=== PATIENT | female | born 2000 | race Caucasian/White ===

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

== ENCOUNTER → 2021-01-15 11:31 | Outpatient (CLI) | payer SELFPAY ==
[2021-01-15 13:16] LABS: Adenovirus,PCR Not Detected (NotDetected); Bordetella Pertussis Not Detected (NotDetected); Chlamydophila Pneumoniae, PCR Not Detected (NotDetected); Coronavirus 19, PCR Not Detected (NotDetected); Coronavirus 229E Not Detected (NotDetected); Coronavirus NL63 Not Detected (NotDetected); Coronavirus OC43 Not Detected (NotDetected); Coronovirus HKU1,PCR Not Detected (NotDetected); Human Metapneumovirus Not Detected (NotDetected); Influenza A, PCR Not Detected (NotDetected); Influenza AH1, 2009 Not Detected (NotDetected); Influenza AH1, PCR Not Detected (NotDetected); Influenza AH3,PCR Not Detected (NotDetected); Influenza B, PCR Not Detected (NotDetected); Mycoplasma Pneumoniae, PCR Not Detected (NotDetected); Parainfluenza 1, PCR Not Detected (NotDetected); Parainfluenza 2, PCR Not Detected (NotDetected); Parainfluenza 3, PCR Not Detected (NotDetected); Parainfluenza 4, PCR Not Detected (NotDetected); Respiratory Syncytial Virus Not Detected (NotDetected); Rhinovirus/Enterovirus Not Detected (NotDetected)
== END ==
PROVIDERS: PCP Nurse Practitioner Family; Visit Provider Nurse Practitioner
DX: Z20.822 Contact with and (suspected) exposure to COVID-19 (principal)
CPT/HCPCS: 87581; 87633; 87798

== ENCOUNTER → 2021-05-30 14:15 | Outpatient (CLI) | payer OTHER, SELFPAY | PROVIDERS: Visit Provider Nurse Practitioner Family | DX: Z20.822 Contact with and (suspected) exposure to COVID-19 (principal) | CPT/HCPCS: C9803; U0003; U0005 ==

== ENCOUNTER → 2021-11-07 16:24 | Outpatient (CLI) | payer BC, SELFPAY ==
[2021-11-07 17:45] LABS: HCG,Quantitative 1529 mIU/ml (0-5.42)
== END ==
PROVIDERS: PCP Emergency Medicine; Visit Provider Emergency Medicine
DX: Z34.90 Encounter for supervision of normal pregnancy, unspecified, unspecified trimester (principal)
CPT/HCPCS: 36415; 84702

== ENCOUNTER → 2021-11-30 12:54 | Outpatient (CLI) | payer BC, SELFPAY ==
--- NOTE | 2021-11-30 12:57 | US_ITS ---
FINAL REPORT CLINICAL HISTORY: for dates FINDINGS: Transvaginal sonographic images of the pelvis were obtained. There is a single living intrauterine . [place]-rump length measures 13.76 mm corresponding to 7 week 5 day gestation. Heart rate is 170 beats per minute. The ovaries are within normal limits. There is a probable corpus luteum cyst on the right. IMPRESSION: Single living IUP with an ultrasound age of 7 weeks 5 days days. Reviewed, Interpreted and Dictated by Ham Luo III, MD Transcribed by Gabriela Velásquez Authenticated and [facility]
== END ==
PROVIDERS: PCP Emergency Medicine; Visit Provider Nurse Practitioner Obstetrics & Gynecology
DX: Z34.90 Encounter for supervision of normal pregnancy, unspecified, unspecified trimester (principal)
CPT/HCPCS: 76801

== ENCOUNTER → 2021-12-14 12:00 | Outpatient (CLI) | payer BC, SELFPAY ==
[2021-12-14 12:37] LABS: Basophils % 0.5 % (0.1-2.0); Eosinophils % 0.5 % (0.1-12.0); Hemoglobin 14.1 g/dL (12.2-16.2); Lymphocytes # 1.3 K/mm3 (0.7-4.5); Lymphocytes % 17.2 % (10-50); Mean Corpuscular HGB Conc 33.6 g/dL (31.8-35.4); Mean Corpuscular Volume 89.1 fl (81-99); Mean Platelet Volume 7.5 fl (7.4-10.4); Monocytes # 0.3 K/mm3 (0.1-1.0); Monocytes % 4.3 % (1.7-9.3); Neutrophils % 77.4 % (37.0-80.0); Platelet Count 322 K/mm3 (142-424); Red Blood Count 4.71 M/mm3 (4.20-5.40); Red Cell Distribution Width 12.4 % (11.5-17.5); White Blood Count 7.8 K/mm3 (4.8-10.8)
[2021-12-14 12:54] LABS: Anion Gap 13.7 mEq/L (5-15); Blood Urea Nitrogen 9 mg/dl (7-17); Calcium 9.1 mg/dl (8.4-10.2); Carbon Dioxide 22 mmol/L (22.0-30.0); Chloride 106 mmol/L (98-107); Estimated Glomerular Filt Rate 153 ml/min (>60); GFR (African American) 185 ML/MIN (>60); Glucose 104 mg/dl (74-100); Potassium 3.7 mmoL/L (3.5-5.1); Sodium 138 mmol/L (136-145)
== END ==
PROVIDERS: PCP Emergency Medicine; Visit Provider Nurse Practitioner Obstetrics & Gynecology
DX: O02.1 Missed abortion (principal); N92.0 Excessive and frequent menstruation with regular cycle; Z01.812 Encounter for preprocedural laboratory examination; Z20.822 Contact with and (suspected) exposure to COVID-19
CPT/HCPCS: 36415; 80048; 85025; C9803; U0003; U0005

== ENCOUNTER 2021-12-16 07:47 | Day surgery (SDC) | payer BC, SELFPAY ==
[2021-12-15 13:48] VITALS: BMI 22.3
[2021-12-16] VITALS (10 sets, daily range): BP systolic 112–132; BP diastolic 67–76; PULSE 62–84; RESP 16–18; TEMP 36.2–43; O2SAT 99–100
--- NOTE | 2021-12-16 09:23 | HMH.ANESCL ---
[facility] Anesthesia Checklist - Patient Identification Patient Identification: Arm Band - Structural Data Admitted From: Home Planned Operative Procedure/s: D&C with Berkely Suction Consent for Planned Operative Procedure(s) Verified: Yes Verified Documents: Surgical Consent, History and Physical - NPO Status Verified Time NPO: 00:00 - Additional verifications Anesthesia Reactions: No Hx Blood Transfusions: No Blood Transfusion Reaction: No - Airway Assessment C-Spine Mobility Assessed: Yes (mp2) TMJ Mobility Assessed: Yes Dentition: Good Dentition - Neurological Assessment Level of Consciousness: Awake, Alert - Anesthesia Plan Anesthesia Risk discussed: Yes Anesthesia Plan: Verified ASA Class: I Anesthesia Type: General [facility] History I have reviewed the patient's past medical history: Yes Medical History: Reports:: Renal Disease Denies:: Cancer, Diabetes Mellitus Type 1, Diabetes Mellitus Type 2, Internal Pacemaker, MRSA, Seizures *Have you ever received a pneumonia vaccine?: No *Have you received a flu vaccine this season?: No Other Medical History: Denies: Blood Transfusion Reaction Anesthesia experience/problems:: nac Other Surgeries: Yes: Other. No: , Pacemaker Amputation: No Fractures: No - *Social History Last grade of school completed: High school graduate Smoking Status: Never smoker Alcohol Intake: never Substance Use Type: denies use *Occupational Status:: employed Housing: house *Travel in the last 8 weeks: None Family Hx:: No significant family history SORTING GRAPPLE OPERATOR history: no No SORTING GRAPPLE OPERATOR history, no Non-contributory, no Spontaneous , no Therapeutic , no Cervical Cancer, no Abnormal Uterine Bleeding, no Ovarian Cancer, no dysfunctional uterine bleed, no Endometriosis, no Ectopic , no Polycystic Ovary Syndrome, no Uterine Fibroids, no Tubal Ligation, no , no Failure to Progress, no Additional SORTING GRAPPLE OPERATOR History
--- NOTE | 2021-12-16 09:39 | HMH.ANESI ---
[facility] Anesthesia Record Part I Intake, IV Amount: 500 Estimated blood loss (mL): 150 Urine output (mL): 0 Blood Pressure: 117/76 SaO2: 99 Pulse Rate: 62 Respiratory Rate: 16 Temperature: 97.9 F Patient is:: Drowsy, Stable Stable to PACU at:: 09:35
--- NOTE | 2021-12-16 09:47 | P.OP_ITS ---
Date of procedure: 12/16/21 Pre-op Diagnosis:: Missed Post-op Diagnosis:: Missed Procedure performed:: Dilation and curettage with Brandon suction Surgeon:: Amadeo Alcala MD MONTESSORI PARAPROFESSIONAL:: Jin Magallon Anesthesia: LMA Estimated blood loss (mL): 150 Clinical Note:: She is a 21-year-old 2 para 1 who was 10 weeks gestational age. She was seen in my office and I could not find a heart. I did an ultrasound and it showed no heart rate activity and no flow to the fetus. The fetus measures 7 weeks. We repeated the ultrasound the next day and found the same thing. After having discussed the risk and benefits we elected to perform a dilation and curettage with Tensas suction. The risks and benefits of surgery discussed the patient prior to surgery. Operative findings:: She had an anteverted bulky uterus. Operative note:: She was taken the operating room where LMA anesthesia was found be adequate. She is prepped draped normal sterile fashion in the lithotomy position. A weighted speculum was placed in the vagina and the anterior lip of the cervix was grasped with a tenaculum. Gonzalez dilators used to dilate the cervix to 9 mm. Then using a 9 mm curved Brandon suction curette I evacuated the uterine contents. This was followed by gentle curettage. She tolerated the procedure well and was taken to the recovery room in excellent condition. All sponge, instrument counts were correct. Estimated blood loss was approximately 150 cc. Condition: stable Disposition: PACU Specimens:: Products of conception Complications:: None
--- NOTE | 2021-12-16 10:26 | PC.NURSE ---
1003-detailed report called to ANDRA Rosales 1005-pt transported to post op via stretcher w/scarlett rails up and left in care of ANDRA Rosales with bed locked in lowest position, vss, pt stable
--- NOTE | 2021-12-16 10:48 | P.PN_ITS ---
[facility] Anesthesia Record Part II Discharge Time: 10:05 Destination: Surgical Day Care (OP Surgery) PACU nurse assessment reviewed?: Yes Patient Condition:: Good Anesthesia Complications:: None Swallowing reflex intact?: Yes Cyanosis?: No Blood Pressure: 120/72 Pulse Rate: 66 Temperature: 97.4 F Mental Status: Alert & Oriented Pain level:: 0 Nausea and/or vomitting:: None Intake, IV Amount: 0
== END 2021-12-16 10:35 | disposition home or self-care (01) ==
LOC: OR 07:48
PROVIDERS: PCP Emergency Medicine; Visit Provider Nurse Practitioner Obstetrics & Gynecology
PROC: (CPT 59820; principal; 2021-12-16 09:15)
DX: O02.1 Missed abortion (principal); Z3A.10 10 weeks gestation of pregnancy
CPT/HCPCS: 59820; J2405

== ENCOUNTER → 2022-12-28 13:35 | Outpatient (CLI) | payer BC, SELFPAY ==
[2022-12-28 14:59] LABS: HCG,Quantitative 3634 mIU/ml (0-5.42)
[2022-12-30 10:19] LABS: Progesterone 5.9 ng/mL (.)
== END ==
LOC: LAB 13:35
PROVIDERS: PCP Nurse Practitioner Family; Visit Provider Nurse Practitioner Obstetrics & Gynecology
DX: N92.6 Irregular menstruation, unspecified (principal); Z32.00 Encounter for pregnancy test, result unknown
CPT/HCPCS: 36415; 84144; 84702

== ENCOUNTER → 2023-01-04 08:20 | Outpatient (CLI) | payer BC, SELFPAY ==
[2023-01-04 11:07] LABS: HCG,Quantitative 16561 mIU/ml (0-5.42)
[2023-01-05 08:34] LABS: Progesterone 28.3 ng/mL (.)
== END ==
LOC: LAB 08:21
PROVIDERS: PCP Nurse Practitioner Family; Visit Provider Nurse Practitioner Family
DX: Z32.00 Encounter for pregnancy test, result unknown (principal)
CPT/HCPCS: 36415; 84144; 84702

== ENCOUNTER → 2023-01-17 15:33 | Outpatient (CLI) | payer BC, SELFPAY ==
--- NOTE | 2023-01-17 15:34 | US_ITS ---
PROCEDURE: US OB <= 14 WEEKS FETUS CLINICAL INDICATION: for dates COMPARISON: No exams were available for comparison FINDINGS: Transvaginal sonographic images of the pelvis were obtained. From her last menstrual period she is 8weeks 0 days.. An intrauterine gestational sac is present with a pole with a crown-rump length of 1.47cm correlating to gestational age of 7weeks 6days. heart tones are present with an FHR of 169bpm. Yolk sac is noted. The yolk sac measures 5.3mm. The right ovary is seen and appears normal. It measures 2.8 cm x 1.4 cm x 1.7 cm The left ovary is seen and appears normal. It measures 2.4 cm x 1.7 cm x 2.1 cm. Corpus luteum seen on the left ovary. There is no fluid in the cul-de-sac. IMPRESSION: 1. Viable fetus within the uterine cavity. 2. Fetus measures 7 weeks 6 days which corresponds with her last period. 3. Ovaries are seen and appear normal. 4. No fluid in the cul-de-sac. Dictated by: Amadeo Alcala MD 01/17/2023 17:21 Amadeo Alcala MD in [facility] 01/17/2023 17:21
== END ==
PROVIDERS: PCP Nurse Practitioner Family; Visit Provider Nurse Practitioner Obstetrics & Gynecology
DX: Z34.91 Encounter for supervision of normal pregnancy, unspecified, first trimester (principal); Z3A.01 Less than 8 weeks gestation of pregnancy
CPT/HCPCS: 76801

== ENCOUNTER → 2023-01-24 23:29 | Outpatient (CLI) | payer BC, SELFPAY | PROVIDERS: PCP Nurse Practitioner Family; Visit Provider Nurse Practitioner Obstetrics & Gynecology | DX: Z34.91 Encounter for supervision of normal pregnancy, unspecified, first trimester (principal); Z3A.08 8 weeks gestation of pregnancy | CPT/HCPCS: 87086 ==

== ENCOUNTER → 2023-02-23 08:07 | Outpatient (CLI) | payer BC, SELFPAY ==
[2023-02-23 08:50] LABS: Basophils # 0.1 K/mm3 (0-0.2); Basophils % 0.5 % (0.1-2.0); Eosinophils # 0.1 K/mm3 (0.0-0.4); Eosinophils % 0.8 % (0.1-12.0); Hematocrit 40.6 % (37.0-47.0); Hemoglobin 13.6 g/dL (12.2-16.2); Lymphocytes # 1.6 K/mm3 (0.7-4.5); Lymphocytes % 18.6 % (10-50); Mean Corpuscular HGB Conc 33.5 g/dL (31.8-35.4); Mean Corpuscular Hemoglobin 30.2 pg (27.0-31.2); Mean Platelet Volume 8.3 fl (7.4-10.4); Monocytes # 0.3 K/mm3 (0.1-1.0); Monocytes % 3.8 % (1.7-9.3); Neutrophils # 6.4 K/mm3 (1.8-7.8); Neutrophils % 76.3 % (37.0-80.0); Platelet Count 286 K/mm3 (142-424); Red Blood Count 4.51 M/mm3 (4.20-5.40); Red Cell Distribution Width 12.9 % (11.5-17.5); White Blood Count 8.3 K/mm3 (4.8-10.8)
[2023-02-24 07:15] LABS: Rubella Antibodies, IgG 1.61 index (Immune >0.99)
[2023-02-24 11:01] LABS: Rapid Plasma Reagin Ab Titer Non Reactive titer (NonRea<1:1)
[2023-03-04 11:27] LABS: HIV Screen 4th Generation wRfx Non Reactive; Hepatitis B Surface Antigen Negative; Hepatitis C Antibody Non Reactive
== END ==
PROVIDERS: PCP Nurse Practitioner Family; Visit Provider Nurse Practitioner Obstetrics & Gynecology
DX: Z34.91 Encounter for supervision of normal pregnancy, unspecified, first trimester (principal); Z3A.13 13 weeks gestation of pregnancy
CPT/HCPCS: 36415; 85025; 86593; 86703; 86762; 86850; 87340; 87380; G0432

== ENCOUNTER → 2023-04-18 12:57 | Outpatient (CLI) | payer BC, SELFPAY ==
--- NOTE | 2023-04-18 12:57 | US_ITS ---
PROCEDURE: US OB /MATERNAL DETAIL CLINICAL INDICATION: 20 week anatomy scan COMPARISON: No exams were available for comparison FINDINGS: Transabdominal sonographic images of the pelvis were obtained. From her established due date she is 20 weeks 6 days. Single viable intrauterine gestation. Breech position. Placenta: Posteriorplacenta grade 1. There is an average amount of fluid. MVP 2.8 cm. The cervix appears satisfactory. Closed and measuring 3.7 cm in length. Complete survey performed and was unremarkable on the submitted images as in PACS. No discrete anomalies identified on survey imaging by technologist. Active fetus. Three-vessel cord with satisfactory umbilical cord insertion. 4- chamber heart noted. Situs, aortic arch, LVOT, RVOT, three-vessel view appear normal. Survey of brain & ventricles Unremarkable. Cerebellum, thalamus, choroid plexus, cisterna magna appear normal. Face and neck survey unremarkable. Profile, nasion, lips and nose appeared normal. Diaphragm and chest views unremarkable. Abdomen: Both kidneys noted and unremarkable. Stomach and bladder noted and satisfactory. Spine: Survey of the spine satisfactory with no anomalies identified nor imaged. Cervical, thoracic, lower spine appear normal. Both arms and legs noted. Amniotic Fluid: Adequate. Measurements: Average ultrasound age 20weeks 3days. Estimated due date by ultrasound age 0409/02/2023. Estimated weight 356g BPD = 20weeks HC = 20weeks 5days AC = 20weeks 4days FL = 20weeks 3days Growth Percentile= 25 Heart Rate = 153bpm Cerebellum = 20weeks 2days Humerus = 20weeks 5days HC/AC is 1.19 FL/BPD is 0.72 FL/AC is 0.22 IMPRESSION: 1. Viable fetus in the breech presentation with a posterior placenta grade 1. 2. The fluid is within normal limits with an MVP of 2.8 cm. 3. Anatomical scan appears normal. 4. biometry is consistent with the dates. Dictated by: Amadeo Alcala MD 04/20/2023 10:48 Amadeo Alcala MD in [facility] 04/20/2023 10:48
== END ==
PROVIDERS: PCP Nurse Practitioner Family; Visit Provider Nurse Practitioner Obstetrics & Gynecology
DX: Z34.92 Encounter for supervision of normal pregnancy, unspecified, second trimester (principal); Z3A.20 20 weeks gestation of pregnancy
CPT/HCPCS: 76811

== ENCOUNTER 2023-05-30 08:09 | Outpatient (CLI) | payer BC, SELFPAY ==
[2023-05-30 08:42] LABS: Glucose,Fasting 88 mg/dl (74-100)
[2023-05-30 08:43] LABS: Basophils # 0.1 K/mm3 (0-0.2); Basophils % 0.7 % (0.1-2.0); Eosinophils # 0.1 K/mm3 (0.0-0.4); Eosinophils % 0.8 % (0.1-12.0); Hematocrit 40.5 % (37.0-47.0); Hemoglobin 13.8 g/dL (12.2-16.2); Lymphocytes # 1.6 K/mm3 (0.7-4.5); Lymphocytes % 16.2 % (10-50); Mean Corpuscular Hemoglobin 31.3 pg (27.0-31.2); Mean Corpuscular Volume 92.2 fl (81-99); Mean Platelet Volume 8.3 fl (7.4-10.4); Monocytes # 0.4 K/mm3 (0.1-1.0); Monocytes % 4.3 % (1.7-9.3); Neutrophils # 7.6 K/mm3 (1.8-7.8); Neutrophils % 78.1 % (37.0-80.0); Platelet Count 256 K/mm3 (142-424); Red Cell Distribution Width 13.2 % (11.5-17.5); White Blood Count 9.8 K/mm3 (4.8-10.8)
[2023-05-30 10:05] LABS: Glucose 1 Hour 127 mg/dL (74-100)
== END 2023-05-30 23:59 ==
LOC: LAB 08:10
PROVIDERS: PCP Nurse Practitioner Family; Visit Provider Obstetrics & Gynecology
DX: Z34.92 Encounter for supervision of normal pregnancy, unspecified, second trimester (principal); Z3A.26 26 weeks gestation of pregnancy
CPT/HCPCS: 36415; 82951; 85025

== ENCOUNTER 2023-08-02 14:00 | Outpatient (CLI) | payer BC, SELFPAY ==
--- NOTE | 2023-08-02 14:01 | US_ITS ---
PROCEDURE: US OB BIOPHYSICAL PROFILE CLINICAL INDICATION: US OB BPP/Growth with SD Ratio-SGA COMPARISON: US US OB /MATERNAL DETAIL from 04/18/2023 FINDINGS: Transabdominal sonographic images of the uterus were obtained. From her established due date she is 36weeks 0 days. The following parameters are obtained: Viable Fetus in the cephalic presentation with a posterior placenta grade 2. Average ultrasound age is 36weeks 1day Estimated weight 2,689g, 5 lb 15 oz. Cervix measures 4.2 cm. Measurements: heart Rate = 147bpm BPD = 36weeks 1day, 61 percentile HC = 38weeks 0 days, 68 percentile AC = 35weeks 1day, 33 percentile FL = 35weeks 1day, 22 percentile HC/AC is 1.07 FL/BPD is 0.77 FL/AC is 0.22 37 percentile Amniotic fluid index: 9.47cm, MVP 4.14 cm. Qualitative AFV:2 Breathing movements: 2 Gross Body Movements: 2 Tone: 2 Biophysical profile score: 8 Doppler evaluation of the umbilical artery: SD ratio: 2.2-2.6 Resistive index: 0.62 No obvious anomalies evident.Kidneys, stomach, bladder, three-vessel cord appear normal. There is renal pyelectasis of the right kidney measuring 10.3 mm. IMPRESSION: 1. Viable fetus in the cephalic presentation with a posterior placenta grade 2. 2. The fluid is within normal limits with an amniotic fluid index of 9.47 cm, MVP 4.14 cm. 3. Biophysical profile is 8/8 with good breathing movement and movement seen. 4. SD ratio normal between 2.2-2.6. 5. There has been good interval growth with the fetus currently 37th percentile. 6. There has been increased right renal pelvis dilation, now measuring 10.3 cm. Suggest follow-up with office manager executive assistant. Dictated by: Amadeo Alcala MD 08/03/2023 11:11 Amadeo Alcala MD in [place] 08/03/2023 11:11
== END 2023-08-02 23:59 ==
LOC: RAD 14:01
PROVIDERS: PCP Nurse Practitioner Family; Visit Provider Nurse Practitioner Obstetrics & Gynecology
DX: O09.293 Supervision of pregnancy with other poor reproductive or obstetric history, third trimester (principal); O36.5930 Maternal care for other known or suspected poor fetal growth, third trimester, not applicable or unspecified; Z3A.35 35 weeks gestation of pregnancy
CPT/HCPCS: 76816; 76819; 76820

== ENCOUNTER 2023-08-08 17:10 | Outpatient (CLI) | payer BC, SELFPAY | END 2023-08-08 23:59 | LOC: LAB.DROPOF 17:10 | PROVIDERS: PCP Obstetrics & Gynecology; Visit Provider Obstetrics & Gynecology | DX: O26.893 Other specified pregnancy related conditions, third trimester (principal); Z3A.36 36 weeks gestation of pregnancy | CPT/HCPCS: 86403 ==

== ENCOUNTER 2023-08-12 22:59 | Inpatient (IN) | payer BC, SELFPAY ==
[2023-08-12 22:24] VITALS: BMI 25.5
[2023-08-12 22:40] VITALS: BP 130/75; PULSE 86; RESP 18; TEMP 36.8; O2SAT 100; BMI 25.5
[2023-08-12 22:44] VITALS: BP 130/75; PULSE 86; RESP 18; TEMP 36.8; O2SAT 100
[2023-08-12 22:52] LABS: Fetal Membrane Rupture (Rapid) Positive (Negative)
[2023-08-12] MEDS: DEXTROSE 5%-LACTATED RINGERS 1,000 ML 125 ML IV (23:23)
[2023-08-12] MEDS: OXYTOCIN/RINGERS LACTATE 30 UNITS/500 ML BAG IV (23:23)
[2023-08-12] MEDS: LACTATED RINGERS 1000ML 1,000 ML 500 ML IV (23:23)
[2023-08-12 23:53] LABS: Microscopic, Urine URINE MICROSCOPIC (MICROSCOPIC)
[2023-08-12 23:54] LABS: Basophils # 0.1 K/mm3 (0-0.2); Basophils % 0.8 % (0.1-2.0); Eosinophils # 0.1 K/mm3 (0.0-0.4); Eosinophils % 0.7 % (0.1-12.0); Hematocrit 39.6 % (37.0-47.0); Hemoglobin 12.9 g/dL (12.2-16.2); Lymphocytes # 2.5 K/mm3 (0.7-4.5); Lymphocytes % 18.1 % (10-50); Mean Corpuscular HGB Conc 32.6 g/dL (31.8-35.4); Mean Corpuscular Hemoglobin 29.9 pg (27.0-31.2); Mean Platelet Volume 9.1 fl (7.4-10.4); Monocytes # 0.8 K/mm3 (0.1-1.0); Monocytes % 5.5 % (1.7-9.3); Neutrophils # 10.4 K/mm3 (1.8-7.8); Neutrophils % 74.9 % (37.0-80.0); Platelet Count 282 K/mm3 (142-424); Red Cell Distribution Width 13.6 % (11.5-17.5); White Blood Count 13.8 K/mm3 (4.8-10.8)
[2023-08-12 23:58] LABS: Appearance,Urine CLEAR (Clear); Bilirubin,Urine Negative (Negative); Blood, Urine Negative (Negative); Color,Urine YELLOW (Yellow); Glucose,Urine (UA) Negative (Negative); Ketones,Urine Negative (Negative); Leukocyte Esterase,Urine Negative (Negative); Nitrate,Urine Negative (Negative); Protein,Urine Negative (Negative); Urobilinogen,Urine 0.2 EU/dl (0.2)
[2023-08-13 00:04] LABS: Chloride 107 mmol/L (98-107); Potassium 3.7 mmoL/L (3.5-5.1); Sodium 133 mmol/L (136-145)
[2023-08-13 00:05] LABS: Alanine Aminotransferase 17 U/L (12-78); Albumin Level 3.5 g/dl (3.5-5.0); Albumin/Globulin Ratio 1.3 (1.1-1.8); Alkaline Phosphatase 217 U/L (38-126); Aspartate Amino Transferase 29 U/L (14-36); Bilirubin,Total 0.6 mg/dl (0.2-1.3); Blood Urea Nitrogen 6 mg/dl (7-17); Calcium 8.4 mg/dl (8.4-10.2); Carbon Dioxide 21 mmol/L (22.0-30.0); Creatinine Clearance Estimated 153 mL/min (50-200); Estimated Glomerular Filt Rate 122 ml/min (>60); GFR (African American) 147 ML/MIN (>60); Globulin 2.8 g/dL (1.3-3.2); Glucose 96 mg/dl (74-100); Total Protein,Serum 6.3 g/dl (6.3-8.2)
[2023-08-13 00:06] LABS: Anion Gap 8.7 mEq/L (5-15)
[2023-08-13 00:09] LABS: Bacteria,Urine Trace /lpf; WBC,Urine Occasional #/hpf (0-3)
[2023-08-13 00:11] LABS: Barbiturates Screen,Urine Negative ng/ml (<200)
[2023-08-13 00:12] LABS: Amphetamine/Metha Screen,Urine Negative ng/ml (<1000); Benzodiazepines Screen,Urine Negative ng/ml (<200)
[2023-08-13 00:13] LABS: Cannabinoid Screen,Urine Negative ng/ml (<50); Cocaine Screen,Urine Negative ng/ml (<300)
[2023-08-13 00:14] LABS: Methadone Screen,Urine Negative ng/ml (<300)
[2023-08-13 00:15] LABS: Opiate Screen,Urine Negative ng/ml (<300); Phencyclidine Screen,Urine Negative ng/ml (<25)
[2023-08-13] MEDS: BUTORPHANOL TARTRATE 2 MG/ML VIAL IV (02:52)
--- NOTE | 2023-08-13 06:27 | EXP.ANES.CKL ---
[facility] Disclaimer: The information contained in this section may have been updated after the patient was seen, as this information can be updated by other users. 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 caffeine: Yes [facility] Anesthesia Checklist Patient Identification Patient Identification: Verbal (Name & ) Structural Data Admitted From: Inpatient Planned Operative Procedure/s: labor epidural Consent for Planned Operative Procedure(s) Verified: Yes Additional verifications Anesthesia Reactions: No Hx Blood Transfusions: No Blood Transfusion Reaction: No Airway Assessment Mallampati Score:: Class I C-Spine Mobility Assessed: Yes TMJ Mobility Assessed: Yes Dentition: Good Dentition Neurological Assessment Level of Consciousness: Awake, Alert and Appropriate Anesthesia Plan Anesthesia Risk discussed: Yes Anesthesia Plan: Verified ASA Class: II Anesthesia Type: Epidural
--- NOTE | 2023-08-13 08:22 | P.HP_ITS ---
OB - H&P: HPI Antepartum History of Present Illness Chief complaint: Leakage of fluid History of present illness: Ms David Hannah is a 23 yo at 37w4d who presents to [facility] Labor and Delivery with leakage of fluid that started at 2130 last night, 08/12/23. She admits to contractions. No vaginal bleeding. Baby is very active. She has had good care. GBS pending. Upon arrival to L&D Amnisure was positive. Cervical exam . History of Present Criteria for establishing EDC:: based on 1st trimester US only care: good care Ultrasounds: normal mid trimester US Obstetrical complications: none Medical complications: none Labs Blood type: O (+) positive Rubella: immune RPR/VDRL: nonreactive GBS status: unknown HBsAG: negative [facility] Disclaimer: The information contained in this section may have been updated after the patient was seen, as this information can be updated by other users. 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 caffeine: Yes Review of Systems Review of Systems Review of systems:: pertinent systems reviewed and negative unless documented below Meds Home Medications and Allergies Home Medications Medication Instructions Recorded Confirmed Type vits no.126-ferrous fum 1 tab PO DAILY 01/24/23 08/08/23 History 28 mg iron-folic acid 800 mcg tablet (Classic ) ondansetron 4 mg disintegrating 4 mg PO Q6H PRN nausea and 02/22/23 08/08/23 Rx tablet vomiting #30 tabs New Prescriptions to Start Prescriptions: Allergies Allergy/AdvReac Type Severity Reaction Status Date / Time No Known Allergies Allergy Verified 08/08/23 13:18 OB - H&P: Exam Physical Exam Vital signs: Temp Pulse Resp BP Pulse Ox O2 Del Method 98.2 F 86 18 130/75 100 Room Air 08/12/23 22:44 08/12/23 22:44 08/12/23 22:44 08/12/23 22:44 08/12/23 22:44 08/12/23 22:44 Constitutional no acute distress and cooperative Routine HEENT Exam Head: Present normocephalic and atraumatic Eye: Absent conjunctivae pink ENT: Present mucous membranes moist Routine Neck Exam Present full ROM Routine Respiratory Exam Present CTA bilaterally and normal respiratory effort Routine Cardiovascular Exam Present RRR Routine Abdominal Exam Present soft (Gravid); Absent tenderness Routine Rectal Exam Patient deferred: visual exam Routine Exam External: Present normal urethra appearance; Absent erythema, tenderness, lesions or lacerations Routine Extremities Exam Present full ROM; Absent edema Routine Neurological Exam Present alert, moving all extremities and normal speech Routine Psychiatric Exam Present normal affect and cooperative Detailed Labor and Delivery Exam Dilation (cm): 5 Effacement (%): 80 Cervix position: mid station: -1 Consistency: soft Membranes: spontaneously ruptured (2130 on 08/12/23) Amniotic fluid: clear Baseline heart rate: 150 monitor accelerations: Present monitor decelerations: Variable FPC variability: Minimal (3-5) Contraction frequency (min): 4 Tachysystole: No OB - Results Labs Labs: Short CBC 08/12/23 Range/Units 23:20 WBC 13.8 H (4.8-10.8) K/mm3 Hgb 12.9 (12.2-16.2) g/dL Hct 39.6 (37.0-47.0) % Plt Count 282 (142-424) K/mm3 BMP 08/12/23 23:20 Sodium 133 L Potassium 3.7 Chloride 107 Carbon Dioxide 21 L BUN 6 L Creatinine 0.60 Glucose 96 Calcium 8.4 Liver Function 08/12/23 Range/Units 23:20 Total Bilirubin 0.6 (0.2-1.3) mg/dl AST 29 (14-36) U/L ALT 17 (12-78) U/L Alkaline Phosphatase 217 H (38-126) U/L Albumin 3.5 (3.5-5.0) g/dl Urine 08/12/23 Range/Units 23:10 Urine Color Yellow (Yellow) Urine Appearance Clear (Clear) Urine pH 7.0 (5.0-8.5) Ur Specific [place] 1.010 (1.005-1.030) Urine Protein Negative (Negative) Urine Glucose (UA) Negative (Negative) OB - A/P Antepartum (1) 37 weeks gestation of : Status: Acute (2) PROM (premature rupture of membranes): Status: Acute Additional Plan Planning to breastfeed?: Yes Additional Information:: Admit to L&D for labor augmentation with Pitocin GBS pending Close monitoring Anticipate vaginal delivery
--- NOTE | 2023-08-13 09:13 | HMH.PHAINT1 ---
Pharmacy Intervention Comments: MEDICATION RECONCILIATION COMPLETED ON PATIENT USING EXTERNAL FILL HISTORY FROM PHARMACY. -ELVER SANCHEZ, PEPED
[2023-08-13] MEDS: OXYTOCIN/RINGERS LACTATE 30 UNITS/500 ML BAG 999 UNITS IV (13:54)
--- NOTE | 2023-08-13 14:02 | EXP.DN ---
Delivery Note Delivery Date:: 08/13/23 Delivery Time:: 13:50 Anesthesia Type: Epidural Was labor medically induced?: No Gestational age (weeks): 37 Infant delivered prior to 39 weeks?: Yes Justification for early elective delivery:: Premature ROM Infant Gender: Male at 1 minute: 8 at 5 minutes: 9 Delivery Procedure:: Mom complete with epidural. Pushed for approximately 6 minutes. Head delivered spontaneously over intact perineum in RADHA position. No nuchal cord. Anterior shoulder delivered with gentle downward pressure. Posterior shoulder and remainder of body delivered spontaneously. Baby placed on maternal abdomen, mouth and nares bulb suctioned, warmed/dried and stimulated. Delayed cord clamping was performed for 60 seconds. Cord was clamped and cut by father of baby. Cord blood was obtained. Placenta delivered spontaneously and intact. No lacerations. Mom and baby were skin to skin and doing well after delivery. Live male baby (baby's name is undecided) APGARs 8 (1 min), 9 (5 min) EBL 50 mL Placental Delivery Description: Spontaneous
[2023-08-13] MEDS: OXYTOCIN/RINGERS LACTATE 30 UNITS/500 ML BAG 40 UNITS IV (14:10)
[2023-08-14] MEDS: ACETAMINOPHEN 500MG TAB 1000 MG PO (01:08)
[2023-08-14 07:13] LABS: Basophils # 0.1 K/mm3 (0-0.2); Basophils % 0.5 % (0.1-2.0); Eosinophils # 0.1 K/mm3 (0.0-0.4); Eosinophils % 0.4 % (0.1-12.0); Hemoglobin 12.5 g/dL (12.2-16.2); Lymphocytes % 14.2 % (10-50); Mean Corpuscular Hemoglobin 30.1 pg (27.0-31.2); Mean Corpuscular Volume 93.9 fl (81-99); Mean Platelet Volume 9.7 fl (7.4-10.4); Monocytes # 1.1 K/mm3 (0.1-1.0); Monocytes % 5.1 % (1.7-9.3); Neutrophils # 16.8 K/mm3 (1.8-7.8); Neutrophils % 79.9 % (37.0-80.0); Platelet Count 267 K/mm3 (142-424); Red Blood Count 4.15 M/mm3 (4.20-5.40); Red Cell Distribution Width 13.6 % (11.5-17.5)
[2023-08-14 07:17] LABS: MANUAL DIFFERENTIAL MANUAL DIFFERENTIAL (MANUAL DIFF)
[2023-08-14 08:11] LABS: Eosinophils % 1 % (0-3); Lymphocytes % 15 % (10-50); Monocytes % 1 % (2-9); Neutrophils % 83 % (42-76); Platelet Estimate Normal; RBC Morphology Normal; Total Cells Counted 100
[2023-08-14 08:30] VITALS: BP 125/73; PULSE 76; RESP 16; TEMP 36.7; O2SAT 98
--- NOTE | 2023-08-14 11:55 | EXP.DC.SUM ---
General Admission date:: 08/12/23 Discharge date: 08/14/23 HPI HPI HPI: PPD # 1 s/p Feeling well. Pain controlled. Breast feeding. Lochia is appropriate. Voiding without difficulty and passing flatus. Tolerating regular diet. Denies fever/chills, chest pain and shortness of breath. No headaches, vision changes, lightheadedness/dizziness. No lower extremity swelling. Ambulating well ad severo. Hospital Course Hospital Course Hospital Course: Ms David Hannah is a 23 yo at 37w4d who presents to [facility] Labor and Delivery with leakage of fluid that started at 2130 last night, 08/12/23. She admits to contractions. No vaginal bleeding. Baby is very active. She has had good care. GBS pending. Upon arrival to L&D Amnisure was positive. Cervical exam . Labor was augmented with Pitocin. She had a normal spontaneous vaginal delivery on 08/13/23 at 1350. She delivered a live male, name is still undecided, weighing 7 lb 11 oz. APGARs 8 (1 min), 9 (5 min). EBL 50 mL. She did well . Pain controlled. Breast feeding. Lochia appropriate. Voiding without difficulty and passing flatus. Tolerating regular diet. Denies fever/chills, chest pain and shortness of breath. No headaches, dizziness/lightheadedness or vision changes. Vital signs stable, afebrile. Heart regular rate and rhythm. Lungs clear to auscultation. Abdomen soft, nontender. No lower extremity swelling. Ambulating well ad severo. Normal hospital course. She was discharged to home on POD # 1 with instructions to follow-up in the office in 2 weeks or sooner if needed. Exam Data for Last 24 hours Vital signs and Labs for Last 24 Hours: Temp Pulse Resp BP Pulse Ox O2 Del Method 98.1 F 76 16 125/73 98 Room Air 08/14/23 08:30 08/14/23 08:30 08/14/23 08:30 08/14/23 08:30 08/14/23 08:30 08/14/23 08:30 Laboratory Results - last 24 hr 08/14/23 05:16: WBC 21.0 H* D, RBC 4.15 L, Hgb 12.5, Hct 39.0, MCV 93.9, MCH 30.1, MCHC 32.0, RDW 13.6, Plt Count 267, MPV 9.7, Neut % (Auto) 79.9, Lymph % (Auto) 14.2, Howell % (Auto) 5.1, Eos % (Auto) 0.4, Baso % (Auto) 0.5, Neut # (Auto) 16.8 H, Lymph # (Auto) 3.0, Howell # (Auto) 1.1 H, Eos # (Auto) 0.1, Baso # (Auto) 0.1, Total Counted 100, Neutrophils % (Manual) 83 H, Lymphocytes % (Manual) 15, Monocytes % (Manual) 1 L, Eosinophils % (Manual) 1, Platelet Estimate Normal, RBC Morphology Normal I & O for Last 24 hours: Intake & Output 08/11/23 08/12/23 08/13/23 08/14/23 23:59 23:59 23:59 23:59 Weight 149 lb Constitutional Constitutional: no acute distress and cooperative *Routine HEENT Exam Head: Present normocephalic and atraumatic Eye: Absent conjunctivae pink ENT: Present mucous membranes moist *Routine Neck Exam Neck: Present full ROM *Routine Respiratory Exam Respiratory: Present CTA bilaterally and normal respiratory effort *Routine Cardiovascular Exam Cardiovascular: Present RRR *Routine Abdominal Exam Abdominal: Present soft; Absent tenderness Comments: Uterine fundus firm and below umbilicus *Routine Rectal Exam Patient deferred: visual exam *Routine Exam Patient deferred: external exam *Routine Extremities Exam Extremities: Present full ROM; Absent edema or calf tenderness *Routine Neurological Exam Neurological: Present alert, moving all extremities and normal speech Routine Psychiatric Exam Psychiatric: Present normal affect and cooperative Results Data Completed and Pending Labs on day of discharge: Labs from last 24 hours 08/14/23 05:16 WBC 21.0 H* D RBC 4.15 L Hgb 12.5 Hct 39.0 MCV 93.9 MCH 30.1 MCHC 32.0 RDW 13.6 Plt Count 267 MPV 9.7 Neut % (Auto) 79.9 Lymph % (Auto) 14.2 Howell % (Auto) 5.1 Eos % (Auto) 0.4 Baso % (Auto) 0.5 Neut # (Auto) 16.8 H Lymph # (Auto) 3.0 Howell # (Auto) 1.1 H Eos # (Auto) 0.1 Baso # (Auto) 0.1 Total Counted 100 Neutrophils % (Manual) 83 H Lymphocytes % (Manual) 15 Monocytes % (Manual) 1 L Eosinophils % (Manual) 1 Platelet Estimate Normal RBC Morphology Normal DS: Diagnosis Discharge Diagnosis (1) Status post vaginal delivery: Status: Acute (2) 37 weeks gestation of : Status: Acute Code(s): Z3A.37 - 37 weeks gestation of (3) PROM (premature rupture of membranes): Status: Acute Code(s): O42.90 - Premature rupture of membranes, unspecified as to length of time between rupture and onset of labor, unspecified weeks of gestation Meds Home Medications and Allergies Home Medications Medication Instructions Recorded Confirmed Type vits no.126-ferrous fum 1 tab PO DAILY Supplement 01/24/23 08/13/23 History 28 mg iron-folic acid 800 mcg tablet (Classic ) ibuprofen 800 mg tablet 800 mg PO Q8H PRN pain #20 tabs 08/14/23 Rx New Prescriptions to Start Prescriptions: Libertad Ling Allergies Allergy/AdvReac Type Severity Reaction Status Date / Time No Known Allergies Allergy Verified 08/08/23 13:18 Discharge Plan Disposition Patient Disposition: Home, Self-Care Condition: Good Discharge Order Discharge Orders: Discharge Order (Routine); Ordered 08/14/23 Ordered By: Libertad Lee Follow up Plan Follow up with: Libertad Lee DO [Staff Physician] - 2 weeks Prescriptions/Medication Reconciliation: New ibuprofen 800 mg tablet 800 mg PO Q8H PRN (Reason: pain) Qty: 20 0RF Continued Classic 28 mg iron- 800 mcg tablet 1 tab PO DAILY Discontinued ondansetron 4 mg tablet,disintegrating 4 mg PO Q6HP PRN (Reason: nausea and vomiting) Problem Reconciliation Problems Reviewed?: Yes Patient Discharge Instructions ACTIVITY: Limited activity DIET: continue same diet and regular diet Additional Instructions: Discharge: 1. Take 800 mg Ibuprofen every 8 hours as needed for pain. You can also take 500-1000 mg of Tylenol in between doses, every 6-8 hours. 2. Nothing in the vagina for 6 weeks - no intercourse, douching or tampons. No tub baths/hot tubs or swimming pools 3. Reasons to return to L&D or call On-Call doctor - fever (greater than 100.4) - heavy vaginal bleeding (soaking through 1 pad in less than 2 hours) - vaginal discharge (malodorous and/or purulent) - severe headaches not resolved by medication or rest and leg tenderness/edema 4. depression/blues - Normal to feel anxious/overwhelmed for first 2 weeks - Talk to your doctor if: severe anxiety, trouble bonding with baby, withdrawing from other family members, thoughts of harming yourself or others Libertad Lee DO [facility] [phone] Patient Instructions: Depression, Hemorrhage, DI for Labor and Delivery, Vaginal , DI for Pre-eclampsia, [facility] Post Discharge Instructions Providers Primary Care Provider: Brandy Vicente Admit Provider: Gwen Jay Attending Provider: Gwen Jay
[2023-08-14 19:22] LABS: Appearance,Urine CLEAR (Clear); Bilirubin,Urine Negative (Negative); Blood, Urine 2+ (Negative); Color,Urine YELLOW (Yellow); Glucose,Urine (UA) Negative (Negative); Ketones,Urine Negative (Negative); Leukocyte Esterase,Urine TRACE (Negative); Microscopic, Urine URINE MICROSCOPIC (MICROSCOPIC); Nitrate,Urine Negative (Negative); PH,Urine 6.5 (5.0-8.5); Protein,Urine Negative (Negative); Urobilinogen,Urine 0.2 EU/dl (0.2)
[2023-08-14 19:38] LABS: Yeast,Urine Occasional /lpf
== END 2023-08-14 20:35 | disposition home or self-care (01) | DRG 807 ==
LOC: OBOUT 23:00 → OB 23:00
PROVIDERS: Obstetrics & Gynecology; Admitting Provider Obstetrics & Gynecology; PCP Nurse Practitioner Family; Visit Provider Obstetrics & Gynecology
DX: O42.92 Full-term premature rupture of membranes, unspecified as to length of time between rupture and onset of labor (principal); Z37.0 Single live birth; Z3A.37 37 weeks gestation of pregnancy
CPT/HCPCS: 59409; 36415; 59025; 80053; 80307; 81001; 84112; 85007; 85025; 86850; 87086; 94761; G0283

== ENCOUNTER 2024-08-15 14:16 | Outpatient (CLI) | payer OTHER, SELFPAY ==
[2024-08-16 10:10] LABS: Progesterone 19.2 ng/mL (.)
== END 2024-08-15 23:59 | disposition home or self-care (01) ==
LOC: LAB 14:17
PROVIDERS: Visit Provider Obstetrics & Gynecology
DX: Z32.01 Encounter for pregnancy test, result positive (principal)
CPT/HCPCS: 36415; 84144; 84702

== ENCOUNTER 2024-10-17 10:04 | Outpatient (CLI) | payer OTHER, SELFPAY ==
--- NOTE | 2024-10-17 10:30 | US_ITS ---
PROCEDURE: US OB /MATERNAL DETAIL CLINICAL INDICATION: Schedule 20 wk anatomy in 4 wks. COMPARISON: No exams were available for comparison FINDINGS: Transabdominal sonographic images of the pelvis were obtained. From her established due date she is 20 weeks 1 day. Single viable intrauterine gestation. Cephalic position. Placenta: Anteriorplacenta grade 1. There are several placental lakes. There is an average amount of fluid. The cervix appears satisfactory. Closed and measuring 4.67 cm in length. Complete survey performed and was unremarkable on the submitted images as in PACS. No discrete anomalies identified on survey imaging by technologist. Active fetus. Three-vessel cord with satisfactory umbilical cord insertion. 4- chamber heart noted. Situs, aortic arch, LVOT, RVOT, three-vessel view appear normal. Survey of brain & ventricles Unremarkable. Cerebellum, thalamus, choroid plexus, cisterna magna appear normal. Face and neck survey unremarkable. Profile, nasion, lips and nose appeared normal. Diaphragm and chest views unremarkable. Abdomen: Both kidneys noted and unremarkable. Stomach and bladder noted and satisfactory. Spine: Survey of the spine satisfactory with no anomalies identified nor imaged. Cervical, thoracic, lower spine appear normal. Both arms and legs noted. Amniotic Fluid: Adequate. MVP 2.28 cm Measurements: Average ultrasound age 20weeks 2days. Estimated due date by ultrasound age 1003/04/2025. Estimated weight 377g BPD = 19weeks 2days HC = 19weeks 6days AC = 21weeks 6days FL = 20weeks 1day Growth Percentile= 81 Heart Rate = 163bpm Cerebellum = 19weeks 0 days HC/AC is 1.03 FL/BPD is 0.74 FL/AC is 0.19 IMPRESSION: 1. Viable fetus in the cephalic presentation with an anterior placenta grade 1. There are several placental lakes. Suggest follow-up ultrasounds. 2. The fluid is within normal limits with an MVP 2.28 cm. 3. Anatomical scan appears normal. 4. biometry is consistent with the dates. Dictated by: Amadeo Alcala MD 10/18/2024 05:52 Amadeo Alcala MD in OV 10/18/2024 05:52
[2024-10-17 11:32] LABS: Basophils # 0.1 K/mm3 (0-0.2); Basophils % 0.6 % (0.1-2.0); Eosinophils # 0.1 Kmm3 (0.0-0.4); Eosinophils % 0.8 % (0.1-12.0); Hematocrit 38.9 % (37.0-47.0); Hemoglobin 13.5 g/dL (12.2-16.2); Immature Granulocytes # 0.13 10^3uL; Immature Granulocytes % 1.5 %; Lymphocytes # 1.4 K/mm3 (0.7-4.5); Lymphocytes % 16.1 % (10-50); Mean Corpuscular HGB Conc 34.7 g/dL (31.8-35.4); Mean Corpuscular Hemoglobin 31.3 pg (27.0-31.2); Mean Platelet Volume 10.3 fl (7.4-10.4); Monocytes # 0.5 K/mm3 (0.1-1.0); Monocytes % 6.2 % (1.7-9.3); Neutrophils # 6.6 K/mm3 (1.8-7.8); Neutrophils % 74.8 % (37.0-80.0); Nucleated Red Blood Cells # 0 10^3/uL; Nucleated Red Blood Cells % 0 %; Platelet Count 256 K/mm3 (142-424); Red Blood Count 4.32 M/mm3 (4.20-5.40); Red Cell Distribution Width 12.8 % (11.5-17.5); Red Cell Distribution Width-SD 41.7 fL; White Blood Count 8.8 K/mm3 (4.8-10.8)
[2024-10-17 12:36] LABS: HIV Combo NEGATIVE (Negative)
[2024-10-17 12:44] LABS: Hepatitis C Ab Qual. W/ RFX NEGATIVE (Negative)
[2024-10-18 06:29] LABS: Hepatitis B Surface Antigen Negative (Negative)
[2024-10-18 08:29] LABS: Rubella Antibodies, IgG 1.42 index (Immune >0.99)
[2024-10-18 15:52] LABS: RPR W/RFX Titers Nonreactive (Nonreactive)
== END 2024-10-17 23:59 | disposition home or self-care (01) ==
PROVIDERS: PCP Obstetrics & Gynecology; Visit Provider Obstetrics & Gynecology
DX: Z34.02 Encounter for supervision of normal first pregnancy, second trimester (principal); Z3A.20 20 weeks gestation of pregnancy
CPT/HCPCS: 36415; 76811; 85025; 86592; 86762; 86803; 86850; 87340; 87389

== ENCOUNTER 2024-11-27 13:00 | Outpatient (CLI) | payer OTHER, SELFPAY ==
--- NOTE | 2024-11-27 13:00 | US_ITS ---
PROCEDURE: US OB FOLLOW UP CLINICAL INDICATION: follow up at 26 weeks on placental lakes COMPARISON: US US OB /MATERNAL DETAIL from 10/17/2024 FINDINGS: Transabdominal sonographic images of the pelvis were obtained. The following parameters are obtained: From her established due date she is 26weeks Viable fetus in the cephalic presentation with an anterior placenta grade 1. There continue to be multiple placental lakes adjacent to the amnion and within the placenta. The cervix measures 3.17 cm heart rate: 149bpm bpm. BPD: 26weeks 3days, 54 percentile HC: 26weeks 6days, 55 percentile AC: 26weeks 4days, 59 percentile FL: 26weeks 5days, 55 percentile HC/AC: 1.12 FL/BPD: 0.75 FL/AC: 0.22 Growth percentile: 64 Amniotic fluid: MVP 4.05 cm No obvious anomalies evident. profile seen, stomach, bladder, kidneys, three-vessel cord, four chamber heart appear normal. IMPRESSION: 1. Viable fetus in the cephalic presentation with an anterior placenta grade 1. There are multiple placental lakes adjacent to the amnion and within the placenta itself. There is flow within these areas. Would suggest a maternal medicine consult given the multitude of these placental lakes. 2. The fluid is within normal limits with an MVP 4.05 cm. 3. There has been good interval growth with the fetus currently 64th percentile. 4. Limited anatomical scan appears normal. Dictated by: Amadeo Alcala MD 11/27/2024 14:20 Amadeo Alcala MD in OV 11/27/2024 14:20
--- OUTSIDE RECORDS SUMMARY | 2024-11-27 13:03 | XMS_ITS | Clinical Summary ---
Author Organization [facility] Address [address] [place] [address] Care Team Providers Care Director Of Analytics Name Role Phone Brandy Vicente BRENDA Primary Care Provider [phone]- [phone] Allergies No known active allergies Medications valACYclovir (Valtrex) 500 MG tablet Take 500 mg by mouth 1 (one) time each day. 08/30/2022 Active Social History Tobacco Use Types Packs/Day Years Used Date Smoking Tobacco: Never Tobacco Cessation:Counseling Given: Not Answered Comments Unknown Sex and Gender Information Value Date Recorded Sex Assigned at Not on file Legal Sex Female 9:07 PM EDT Gender Identity Not on file Sexual Orientation Not on file Plan of Treatment Health Maintenance Due Date Last Done Comments [facility]-Depression Screening 1998 [facility]-HIV Screening 1998 [facility]-Hepatitis C Screening 1998 [facility]-Infant/Child/Adol SDOH Screenings 1998 [facility]-Hepatitis B Vaccines (2 of 3 - 3-dose series) 07/15/1999 06/17/1999 [facility]-IPV Vaccines (2 of 3 - 4-dose series) 07/15/1999 06/17/1999 [facility]-Varicella Vaccines (2 of 2 - 2-dose childhood series) 2002 06/17/1999 HPV Vaccines (1 - 3-dose series) 2013 [facility]- SDOH Screenings 2016 [facility]-Adult SDOH Screenings 2016 [facility]-DTaP,Tdap,and Td Vaccines (3 - Tdap) 2017 09/16/1999, 1998 [facility]-Pap Smear 2019 [id number] Vaccine ( season) 2024 05/16/2021 [facility]-Influenza Vaccine (#1) 2025 [facility]-Zoster Vaccines (1 of 2) 2048 06/17/1999 [facility]-HIB Vaccines Aged Out 06/17/1999, 1998 No longer eligible based on patient's age to complete this topic [facility]-Hepatitis A Vaccines Aged Out No longer eligible based on patient's age to complete this topic [facility]-Pneumococcal Vaccine: Pediatrics (0 to 5 Years) and At-Risk Patients (6 to 49 Years) Aged Out No longer eligible b ased on patient's age to complete this topic [facility]-Rotavirus Vaccines Aged Out No lo nger eligible based on patient's age to complete this topic Insurance ANTH Care Teams Director Of Analytics Relationship Specialty Start Date End Date Brandy Vicente APRN [address] [facility] [place] [address] PCP - General 10/17/22
== END 2024-11-27 23:59 | disposition home or self-care (01) ==
LOC: RAD 13:01
PROVIDERS: PCP Obstetrics & Gynecology; Visit Provider Obstetrics & Gynecology
DX: O28.3 Abnormal ultrasonic finding on antenatal screening of mother (principal); Z36.2 Encounter for other antenatal screening follow-up; Z3A.26 26 weeks gestation of pregnancy
CPT/HCPCS: 76816

== ENCOUNTER 2024-12-11 09:53 | Outpatient (CLI) | payer OTHER, SELFPAY ==
--- OUTSIDE RECORDS SUMMARY | 2024-12-11 09:56 | XMS_ITS | Clinical Summary ---
Author Organization [facility] Address [address] [address] Care Team Providers Care Animal Rehabilitator Name Role Phone Brandy Vicente BRENDA Primary Care Provider [phone]- [phone] Allergies No known active allergies Medications valACYclovir [...] [facility]-HIV Screening 1998 [facility]-Hepatitis C Screening 1998 [facility]-/Child/Adol SDOH Screenings 1998 [facility]-Hepatitis B Vaccines (2 of 3 - 3-dose series) 07/15/1999 06/17/1999 [facility]-IPV Vaccines (2 of 3 - 4-dose series) 07/15/1999 06/17/1999 [facility]-Varicella Vaccines (2 of 2 - 2-dose childhood series) 2002 06/17/1999 HPV Vaccines (1 - 3-dose series) 2013 [facility]- SDOH Screenings 2016 [facility]-Adult SDOH Screenings 2016 [facility]-DTaP,Tdap,and Td Vaccines (3 - Tdap) 2017 09/16/1999, 1998 [facility]-Pap Smear 2019 [id number] Vaccine ( season) 2024 05/16/2021 [facility]-Influenza Vaccine [...] complete this topic Insurance ANTH Care Teams Animal Rehabilitator Relationship Specialty Start Date End Date Brandy Vicente APRN [address] [place] [address] PCP - General 10/17/22
[2024-12-11 12:06] LABS: Hematocrit 37.5 % (37.0-47.0); Hemoglobin 12.3 g/dL (12.2-16.2); Immature Granulocytes % 4.0 %; Mean Corpuscular HGB Conc 32.8 g/dL (31.8-35.4); Mean Corpuscular Hemoglobin 29.9 pg (27.0-31.2); Mean Corpuscular Volume 91.2 fl (81-99); Nucleated Red Blood Cells % 0 %; Platelet Count 244 K/mm3 (142-424); Red Blood Count 4.11 M/mm3 (4.20-5.40); Red Cell Distribution Width-SD 41.4 fL; White Blood Count 12.2 K/mm3 (4.8-10.8)
[2024-12-11 12:28] LABS: Glucose 1 Hour 130 mg/dL (74-100)
[2024-12-11 17:31] LABS: RPR W/RFX Titers Nonreactive (Nonreactive)
== END 2024-12-11 23:59 | disposition home or self-care (01) ==
PROVIDERS: Visit Provider Obstetrics & Gynecology
DX: Z34.92 Encounter for supervision of normal pregnancy, unspecified, second trimester (principal); Z3A.24 24 weeks gestation of pregnancy
CPT/HCPCS: 36415; 82947; 85025; 86592

== ENCOUNTER 2025-01-13 08:53 | Outpatient (CLI) | payer OTHER, SELFPAY ==
--- OUTSIDE RECORDS SUMMARY | 2024-12-16 13:30 | XMS_ITS | Encounter Summary ---
Author Organization [facility] Address [address] [place] [address] Care Team Providers Care Cafeteria Supervisor Name Role Phone Mitesh Hollins MD Primary Care Provider + Reason for Visit * Reason Comments Multiple placenta lakes Encounter Details Date Type Department Care Team (Late st Contact Info) Description 12/16/2024 1:30 PM EDT Office Visit [facility] MATERNAL MEDICINE [address] [place] [phone] Cruz Brink MD [address] [facility] [address] [place] [address] Supervision of other normal , antepartum (Primary [...] Primary documented in this encounter Care Teams Cafeteria Supervisor Relationship Specialty Start Date End Date Mitesh Hollins MD PCP - General Family Medicine 10/29/17 documented as of this encounter
--- OUTSIDE RECORDS SUMMARY | 2024-12-16 13:30 | XMS_ITS | Encounter Summary ---
Author Organization [facility] Address [address] [place] [address] Care Team Providers Care Automation Technician Name Role Phone Mitesh Hollins MD Primary Care Provider + Reason for Referral * Diagnostic Imaging (Routine) - Closed Specialty Diagnoses / Procedures Referred By Contac t Referred To Contact Radiology Diagnoses Abnormal ultrasound Placental abnormality, antepartum , unspecified gestational age Procedures US [facility] Diagnostic [place] Libertad Lee DO [address] [place] [address] Phone: tel: fax: [facility] US PER DIAG CTR [address] [place] [address] Phone: tel: Referral ID Status Reason Start Date Expiration Date Visits Re quested Visits Authorized [id number] Closed 12/02/2024 03/03/2026 1 1 Reason for Visit * Diagnostic Imaging (Routine) - Closed Specialty Diagnoses / Procedures Referred By Contac t Referred To Contact Radiology Diagnoses Abnormal ultrasound Placental abnormality, antepartum , unspecified gestational age Procedures US [facility] Diagnostic [place] Libertad Lee DO [address] [place] [address] Phone: tel: fax: [facility] US PER DIAG CTR [address] [place] [address] Phone: tel: Referral ID Status Reason Start Date Expiration Date Visits Re quested Visits Authorized [id number] Closed 12/02/2024 03/03/2026 1 1 Encounter Details Date Type Department Care Team (Latest Contact Info) Description 12/16/2024 1:30 PM EDT - 12/16/2024 11:59 PM EDT Hospital Encounter [facility] PER DIAG CTR [address] [place] [id number] Libertad Lee, [address] [facility] [address] [place] [address] Abnormal ultrasound; Placental abnormality, antepartum; , unspecified gestational age Discharge Disposition: Home or Self Care Social History Tobacco Use Types Packs/Day Years [...] on file documented as of this encounter Medications at Time of Discharge Vit-Fe Fumarate-FA ( 27-) 27-1 MG tablet tablet Take 1 tablet by mouth Daily. documented as of this encounter Plan of Treatment Not on file documented as of this encounter Procedures Procedure Name Priority Date/Time Associated Diagnosis Comments [facility] Routine 12/16/2024 2:24 PM EDT Abnormal ultrasound Placental abnormality, antepartum , unspecified gestational age documented in this encounter Results * [facility] (12/16/2024 2:24 PM EDT) Anatomical Region Laterality Modality Ultrasound 12/16/2024 2:08 PM EDT Narrative 12/16/2024 2:34 PM EDT PAT NAME: NATIVIDAD CONSTANTINO MED REC#: [id number] DA: 2000 PAT GEND: F PAT TYPE: O EXAM MARQUIS: [id number] REF PHYS LIBERTAD LEE Comparison Studies There are no relevant prior studies to which this study is being compared Patient Status Outpatient Indication ======== Concern for multiple placental lakes. Maternal Assessment Height 165 cm Height (ft) 5 ft Height (in) 5 in Weight 66 kg Weight (lb) 145 lb BMI 24.16 kg/m Method ======= Transabdominal ultrasound examination. View: Adequate view ========= [place] . Number of fetuses: 1 Dating ====== Method of dating: based on stated ABBIE GA by prior assessment 28 w + 4 d ABBIE by prior assessment: 03/06/2025 Ultrasound examination on: 12/16/2024 GA by U/S based upon: AC, BPD, Femur, HC GA by U/S 29 w + 2 d ABBIE by U/S: 03/01/2025 Assigned: based on stated ABBIE, selected on 12/16/2024 Assigned GA 28 w + 4 d Assigned ABBIE: 03/06/2025 length 280 d Biometry Standard BPD 74.3 mm 29w 6d 77% Hadlock OFD 98.4 mm 31w 6d 99% Violeta HC 275.4 mm 30w 1d 65% Hadlock Cerebellum tr 36.3 mm 30w 0d 91% Hill AC 238.3 mm 28w 1d 29% Hadlock Femur 54.9 mm 29w 0d 47% Hadlock Humerus 46.9 mm 27w 5d 18% Violeta HC / AC 1.16 EFW 1,272 g 28w 3d 42% Hadlock EFW (lb) 2 lb EFW (oz) 13 oz EFW by: Hadlock ([id number]) Extended Tibia 45.1 mm 27w 4d 20% Violeta Fibula 42.9 mm 26w 3d 20% Violeta Radius 35.3 mm 24w 5d 16% Violeta Ulna 41.9 mm 27w 1d 4% Violeta Cav. septi pel. tr 5.0 mm Laborer Brush Clearing 5.4 mm CM 8.8 mm 93% Nicolaides Nasal bone 8.8 mm Head / Face / Neck Cephalic index 0.76 16% Nicolaides Extremities / Bony Struc FL / BPD 0.74 FL / HC 0.20 FL / AC 0.23 Other Structures FHR 154 bpm General Evaluation Cardiac activity present. FHR 154 bpm. movements present. Presentation cephalic. Placenta Placental site: anterior. Placental lakes. Umbilical cord Cord vessels: 3 vessel cord. Insertion site: placental insertion: normal. Amniotic fluid Amount of AF: normal, normal. MVP 4.2 cm. ZOILA 11.6 cm. Q1 2.3 cm, Q2 2.1 cm, Q3 3.1 cm, Q4 4.2 cm. Anatomy Cranium: Appears normal Midline falx: Appears normal Cavum septi pellucidi: Appears normal Cerebellum: Appears normal Cisterna magna: Appears normal Head / Neck Rt lateral ventricle: Appears normal Lt lateral ventricle: Appears normal Rt choroid plexus: Appears normal Lt choroid plexus: Appears normal Vermis: Appears normal Neck: Appears normal Lips: Appear normal Profile: Appears normal Nose: Appears normal Face Nose: Nasal bone present, Nasal bone present Palate: Appears normal Orbits: Appears normal Lens: Normal 4-chamber view: Appears normal RVOT view: Appears normal LVOT view: Appears normal Heart / Thorax Aortic arch view: Appears normal Ductal arch view: Appears normal SVC: normal IVC: normal 3-vessel view: Appears normal 4-mhumvz-pibsaoc view: Appears normal Rt lung: Appears normal Lt lung: normal Diaphragm: Appears normal Diaphragm: Intact, Intact Cord insertion: Appears normal Stomach: Appears normal Bladder: Appears normal Abdomen Rt kidney: normal Lt kidney: normal Liver: normal Small bowel: normal Large bowel: normal Cervical spine: Appears normal Thoracic spine: Appears normal Lumbar spine: Appears normal Sacral spine: Appears normal Arms: Appears normal Legs: Appears normal Rt upper arm: Appears normal Rt forearm: Appears normal Rt hand: Appears normal Lt upper arm: Appears normal Lt forearm: Appears normal Lt hand: Appears normal Rt upper leg: Appears normal Rt lower leg: Appears normal Rt foot: Appears normal Lt upper leg: Appears normal Lt lower leg: Appears normal Lt foot: Appears normal Wants to know gender: yes Doppler Arterial Umbilical A PI 0.97 45% Ghazal Umbilical A RI 0.64 42% Ghazal Umbilical A PS 26.18 cm/s <1% Ebbing Umbilical A ED 9.32 cm/s Umbilical A TAmax 17.41 cm/s <1% Ebbing Umbilical A MD 9.11 cm/s Umbilical A S / D 2.81 39% Ghazal Umbilical A HR 152 bpm Maternal Structures Uterus / Cervix Cervix: Visualized Approach: Transabdominal Cervical length 41.5 mm Ovaries / Tubes / Adnexa Rt ovary: Visualized Lt ovary: Visualized Impression Today's exam reveals a SIUP with biometry consistent with dates. anatomic survey appears normal. Fluid is normal. The placenta is anterior with multiple lakes though growth is normal. The TA cervical length appears adequate Recommendation Recommend 32 week growth scan in your office. Coding ======= Description: [id number] Detailed Claims Manager: Christie Macario RDMS Physician: Cruz Brink MD, FACOG Electronically signed by: Cruz Brink MD, FACOG at: 14:34 Procedure Note Cruz Brink MD - 12/16/2024 PAT NAME: NATIVIDAD CONSTANTINO MED REC#: [id number] DA: 2000 PAT GEND: F PAT TYPE: O EXAM MARQUIS: [id number] REF PHYS LIBERTAD LEE Comparison Studies There are no relevant prior studies to which this study is beingcompared Patient Status Outpatient Indication ======== Concern for multiple placental lakes. Maternal Assessment [id number] cm Height (ft)5 ft Height (in)5 in Fyfkcb78 kg Weight (lb)145 lb BMI24.16 kg/m Method ======= Transabdominal ultrasound examination. View: Adequate view ========= [place] . Number of fetuses: 1 Dating ====== Method of dating:based on stated ABBIE GA by prior [id number] w + 4 d ABBIE by prior assessment:03/06/2025 Ultrasound examination on:12/16/2024 GA by U/S based upon:AC, BPD, Femur, HC GA by U/S29 w + 2 d ABBIE by U/S:03/01/2025 Assigned:based on stated ABBIE, selected on 12/16/2024 Assigned GA28 w + 4 d Assigned ABBIE:03/06/2025 [id number] d Biometry Standard BPD74.3 mm 29w 6d 77% Hadlock OFD98.4 mm 31w 6d 99% Violeta HC275.4 mm 30w 1d 65% Hadlock Cerebellum tr36.3 mm 30w 0d 91% Hill AC238.3 mm 28w 1d 29% Hadlock Femur54.9 mm 29w 0d 47% Hadlock Roypmgr51.9 mm 27w 5d 18% Violeta HC / AC1.16 EFW1,272 g 28w 3d 42% Hadlock EFW (lb)2 lb EFW (oz)13 oz EFW by:Hadlock ([id number]) Extended Tibia45.1 mm 27w 4d 20% Violeta Jktkfh25.9 mm 26w 3d 20% Violeta Czebeh18.3 mm 24w 5d 16% Violeta Ulna41.9 mm 27w 1d 4% Violeta Cav. septi pel. tr5.0 mm Vp5.4 mm CM8.8 mm 93% Nicolaides Nasal bone8.8 mm Head / Face / Neck Cephalic index0.76 16% Nicolaides Extremities / Bony Struc FL / BPD0.74 FL / HC0.20 FL / AC0.23 Other Structures MRN625 bpm General Evaluation Cardiac activity present. FHR 154 bpm. movements present. Presentation cephalic. Placenta Placental site: anterior. Placental lakes. Umbilical cord Cord vessels: 3 vessel cord. Insertion site: placentalinsertion: normal. Amniotic fluid Amount of AF: normal, normal. MVP 4.2 cm. ZOILA 11.6 cm. Q12.3 cm, Q2 2.1 cm, Q3 3.1 cm, Q4 4.2 cm. Anatomy Cranium:Appears normal Midline falx:Appears normal Cavum septi pellucidi:Appears normal Cerebellum:Appears normal Cisterna magna:Appears normal Head / Neck Rt lateral ventricle:Appears normal Lt lateral ventricle:Appears normal Rt choroid plexus:Appears normal Lt choroid plexus:Appears normal Vermis:Appears normal Neck:Appears normal Lips:Appear normal Profile:Appears normal Nose:Appears normal Face Nose:Nasal bone present, Nasal bone present Palate:Appears normal Orbits:Appears normal Lens:Normal 4-chamber view:Appears normal RVOT view:Appears normal LVOT view:Appears normal Heart / Thorax Aortic arch view:Appears normal Ductal arch view:Appears normal SVC:normal IVC:normal 3-vessel view:Appears normal 2-yjlpbf-awiawnz view:Appears normal Rt lung:Appears normal Lt lung:normal Diaphragm:Appears normal Diaphragm:Intact, Intact Cord insertion:Appears normal Stomach:Appears normal Bladder:Appears normal Abdomen Rt kidney:normal Lt kidney:normal Liver:normal Small bowel:normal Large bowel:normal Cervical spine:Appears normal Thoracic spine:Appears normal Lumbar spine:Appears normal Sacral spine:Appears normal Arms:Appears normal Legs:Appears normal Rt upper arm:Appears normal Rt forearm:Appears normal Rt hand:Appears normal Lt upper arm:Appears normal Lt forearm:Appears normal Lt hand:Appears normal Rt upper leg:Appears normal Rt lower leg:Appears normal Rt foot:Appears normal Lt upper leg:Appears normal Lt lower leg:Appears normal Lt foot:Appears normal Wants to know gender:yes Doppler Arterial Umbilical A PI0.97 45% Ghazal Umbilical A RI0.64 42% Ghazal Umbilical A PS26.18 cm/s <1% Ebbing Umbilical A ED9.32 cm/s Umbilical A TAmax17.41 cm/s <1% Ebbing Umbilical A MD9.11 cm/s Umbilical A S / D2.81 39% Ghazal Umbilical A HR152 bpm Maternal Structures Uterus / Cervix Cervix:Visualized Approach:Transabdominal Cervical .5 mm Ovaries / Tubes / Adnexa Rt ovary:Visualized Lt ovary:Visualized Impression Today's exam reveals a SIUP with biometry consistent with dates. Fetalanatomic survey appears normal. Fluid is normal. The placenta is anteriorwith multiple lakes though growth is normal. The TA cervical length appears adequate Recommendation Recommend 32 week growth scan in your office. Coding ======= Description:[id number] Detailed Claims Manager: Christie Macario RDMS Physician: Cruz Brink MD, FACOG Electronically signed by: Cruz Brink MD, FACOG at: 14:34 us Libertad Lee DO IMG US ORDERABLES Final Result documented in this encounter Visit Diagnoses Diagnosis Abnormal ultrasound Placental abnormality, antepartum , unspecified gestational age documented in this encounter Care Teams Automation Technician Relationship Specialty Start Date End Date Mitesh Hollins MD PCP - General Family Medicine 10/29/17 documented as of this encounter
--- NOTE | 2025-01-13 09:00 | US_ITS ---
PROCEDURE: US OB BIOPHYSICAL PROFILE CLINICAL INDICATION: multiple placental lakes, EFW 42%ile- With ZOILA COMPARISON: US US OB /MATERNAL DETAIL from 10/17/2024 US US OB FOLLOW UP from 11/27/2024 FINDINGS: Transabdominal sonographic images of the uterus were obtained. From her established due date she is 32weeks 5days. The following parameters are obtained: Viable Fetus in the cephalic presentation with and anterior placenta grade 2. There continue to be multiple lakes within the placenta. Average ultrasound age is 32weeks 3days Estimated weight 1,953g, 4 lb 5 oz The cervix measures 4.07 cm in length. Measurements: heart Rate = 146bpm BPD = 32weeks 4days, 37 percentile HC = 32weeks 6days, 18 percentile AC = 32weeks 6days, 51 percentile FL = 31weeks 3days, 10 percentile HC/AC is 1.03 FL/BPD is 0.75 FL/AC is 0.21 29 percentile Amniotic fluid index: 13.03cm, MVP 4.56 cm Qualitative AFV:2 Breathing movements: 2 Gross Body Movements: 2 Tone: 2 Biophysical profile score: 8 No obvious anomalies evident.Kidneys, stomach, bladder, four-chamber heart, three-vessel cord appear normal. IMPRESSION: 1. Viable fetus in the cephalic presentation with an anterior placenta grade 1. There continue to be multiple intra placental lakes. 2. Fluid is within normal limits with an amniotic fluid index 13.03 cm, MVP 4.54 cm. 3. Biophysical profile is 8/8 with good breathing movement and movement seen. 4. Limited anatomical scan appears normal. Dictated by: Amadeo Alcala MD 01/14/2025 06:12 Amadeo Alcala MD in [place] 01/14/2025 06:12
--- OUTSIDE RECORDS SUMMARY | 2025-01-13 09:12 | XMS_ITS | Clinical Summary ---
Author Organization [facility] Address [address] [place] [address] Care Team Providers Care Horse Identifier Name Role Phone Brandy Vicente BRENDA Primary Care Provider [phone]- [phone] Allergies No known active allergies Medications valACYclovir [...] Tdap) 2017 09/16/1999, 1998 [facility]-Pap Smear 2019 [id number]-[id number] Vaccine ( season) 2024 05/16/2021 [facility]-Influenza Vaccine [...] complete this topic Insurance ANTH Care Teams Horse Identifier Relationship Specialty Start Date End Date Brandy Vicente APRN [address] [facility] [place] [address] PCP - General 10/17/22
--- OUTSIDE RECORDS SUMMARY | 2025-01-13 09:12 | XMS_ITS | Encounter Summary ---
Author Organization [facility] Address [address] [place] [address] Care Team Providers Care Manufacturers Agent Name Role Phone Mitesh Hollins MD Primary Care Provider + Encounter Details Date Type Department Care Team (Latest Contact Info) Description 12/16/2024 Travel Social History Tobacco Use Types Packs/Day Years [...] on file documented as of this encounter Plan of Treatment Not on file documented as of this encounter Visit Diagnoses Not on filedocumented in this encounter Care Teams Manufacturers Agent Relationship Specialty Start Date End Date Mitesh Hollins MD PCP - General Family Medicine 10/29/17 documented as of this encounter
--- OUTSIDE RECORDS SUMMARY | 2025-01-13 09:12 | XMS_ITS | Clinical Summary ---
Author Organization [facility] Address [address] [place] [address] Care Team Providers Care Billing Machine Operator Name Role Phone Mitesh Hollins MD Primary Care Provider + Allergies No known active allergies Medications Vit-Fe Fumarate-FA ( 27-) 27-1 MG tablet tablet Take 1 tablet by mouth Daily. Active Active Problems Problem Noted Date Diagnosed Date Supervision of other normal , antepartu m 12/16/2024 Uterine size date discrepancy 10/30/19 18 Estimated Date of Delivery Comme nts Yes 03/06/2025 Date entered shane or to episode creation Encounters Date Type Department Care Team Description 12/16/2024 1:30 PM EDT - 12/16/2024 11:59 PM EDT Hospital Encounter [facility] US PER DIAG CTR [address] [place] [address] Libertad Lee DO Abnormal ultrasound; Placental abnormality, antepartum; , unspecified gestational age Discharge Disposition: Home or Self Care 12/16/2024 1:30 PM EDT Office Visit [facility] MATERNAL MEDICINE [address] [facility] [address] [place] [address] Cruz Brink MD Supervision of other normal , antepartum (Primary Dx) 12/16/2024 Travel 12/15/2024 Telephone [facility]IC[facility] [address] [facility] [address] [place] [address] Clemencia Prajapati, RN from Last 3 Months Social History Tobacco Use Types Packs/Day Years [...] on file Sexual Orientation Not on file Last Filed Vital Signs Vital Sign Reading [...] Mass Index 24.26 12/16/2024 1:58 PM EDT Plan of Treatment Health Maintenance Due Date Last Done Comments Annual Gynecologic Pelvic an d Breast Exam 1998 HPV VACCINES (1 - 3-dose series) 2013 ANNUAL PHYSICAL 02/08/2017 HEPATITIS C SCREENING 02/08/2017 PAP SMEAR 2019 COVID-19 Vaccine (2 - 2023-2 5 season) 2024 05/16/2021 RSV Vaccine - Adults (1 - Ri sk 1-dose series) 01/26/2025 INFLUENZA VACCINE 02/25/2025 TDAP/TD VACCINES (2 - Td or Tdap) 07/11/2033 024 Pneumococcal Vaccine 0-49 Aged Out No longer eligible based on patient's age to complete this topic Procedures Procedure Name Priority Date/Time Associated Diagnosis Comments [facility] Routine 12/16/2024 2:24 PM EDT Abnormal ultrasound Placental abnormality, antepartum , unspecified gestational age from Last 3 Months Results * [facility] (12/16/2024 2:24 PM EDT) Anatomical Region Laterality Modality Ultrasound 12/16/2024 2:08 PM EDT Narrative 12/16/2024 2:34 PM EDT PAT NAME: NATIVIDAD CONSTANTINO [facility] REC#: [id number] DA: 2000 PAT GEND: F PAT TYPE: O EXAM MARQUIS: [id number] REF PHYS LIBERTAD LEE Comparison Studies There [...] EFW (oz) 13 oz EFW by: Hadlock (MHR-IF-AG-FL) Extended Tibia 45.1 mm 27w 4d 20% Violeta Fibula 42.9 mm 26w 3d 20% Violeta Radius 35.3 mm 24w 5d 16% Violeta Ulna 41.9 mm 27w 1d 4% Violeta Cav. septi pel. tr 5.0 mm Director Of Pulmonary Unit 5.4 mm CM 8.8 mm 93% Nicolaides [...] normal IVC: normal 3-vessel view: Appears normal 8-kmmlnz-owckssy view: Appears normal Rt lung: Appears normal [...] scan in your office. Coding ======= Description: 78181-30 Detailed Keeper Head: Christie Macario RDMS Physician: Cruz Brink MD, FACOG Electronically signed by: Cruz Brink MD, FACOG at: 14:34 Procedure Note Cruz Brink MD - 12/16/2024 PAT NAME: NATIVIDAD CONSTANTINO MED REC#: [id number] DA: 2000 PAT GEND: F PAT TYPE: O EXAM MARQUIS: [id number] REF PHYS LIBERTAD LEE Comparison Studies There are no relevant prior studies to which this study is beingcompared Patient Status Outpatient Indication ======== Concern for multiple placental lakes. Maternal Assessment Ajuxlk274 cm Height (ft)5 ft Height (in)5 in Vsvizs43 kg Weight (lb)145 lb BMI24.16 kg/m Method ======= Transabdominal ultrasound examination. View: Adequate view ========= [place] . Number of fetuses: 1 Dating ====== Method of dating:based on stated ABBIE GA by prior ukyefoofet44 w + 4 d ABBIE by prior assessment:03/06/2025 Ultrasound examination on:12/16/2024 GA by U/S based upon:AC, BPD, Femur, HC GA by U/S29 w + 2 d ABBIE by U/S:03/01/2025 Assigned:based on stated ABBIE, selected on 12/16/2024 Assigned GA28 w + 4 d Assigned ABBIE:03/06/2025 cyrgix710 d Biometry Standard BPD74.3 mm 29w 6d 77% Hadlock OFD98.4 mm 31w 6d 99% Violeta HC275.4 mm 30w 1d 65% Hadlock Cerebellum tr36.3 mm 30w 0d 91% Hill AC238.3 mm 28w 1d 29% Hadlock Femur54.9 mm 29w 0d 47% Hadlock Rasphpu35.9 mm 27w 5d 18% Violeta HC / AC1.16 EFW1,272 g 28w 3d 42% Hadlock EFW (lb)2 lb EFW (oz)13 oz EFW by:Hadlock (YDX-UP-PF-FL) Extended Tibia45.1 mm 27w 4d 20% Violeta Gtfhzu68.9 mm 26w 3d 20% Violeta Bpxzab26.3 mm 24w 5d 16% Violeta Ulna41.9 mm 27w 1d 4% Violeta Cav. septi pel. tr5.0 mm Vp5.4 mm CM8.8 mm 93% Nicolaides Nasal bone8.8 mm Head / Face / Neck Cephalic index0.76 16% Nicolaides Extremities / Bony Struc FL / BPD0.74 FL / HC0.20 FL / AC0.23 Other Structures OJH420 bpm General Evaluation Cardiac activity present. FHR [...] view:Appears normal SVC:normal IVC:normal 3-vessel view:Appears normal 6-tvljgu-lipnbqz view:Appears normal Rt lung:Appears normal Lt lung:normal [...] Structures Uterus / Cervix Cervix:Visualized Approach:Transabdominal Cervical evfyjt33.5 mm Ovaries / Tubes / Adnexa Rt ovary:Visualized Lt ovary:Visualized Impression Today's exam reveals a SIUP with biometry consistent with dates. Fetalanatomic survey appears normal. Fluid is normal. The placenta is anteriorwith multiple lakes though growth is normal. The TA cervical length appears adequate Recommendation Recommend 32 week growth scan in your office. Coding ======= Description:70560-50 Detailed Keeper Head: Christie Macario RDMS Physician: Cruz Brink MD, FACOG Electronically signed by: Cruz Brink MD, KULDIPOG at: 14:34 us Libertad Lee DO IMG US ORDERABLES Final Result from Last 3 Months Insurance [facility] Care Teams Billing Machine Operator Relationship Specialty Start Date End Date Mitesh Hollins MD PCP - General Family Medicine 10/29/17
--- OUTSIDE RECORDS SUMMARY | 2025-01-13 09:12 | XMS_ITS | Patient Health Record ---
Author Organization [facility] Address [address] [facility] [address] [place] [address] Care Team Providers Care Glove Factory Sewer Name Role Phone Libertad Bradshaw Unavailable [phone] Reason For Referral No Information Social History Social History Sexual History: Social Info Question Answer Notes Sexual History Had sex in the past 12 months (vaginal, oral, or anal)? Yes Drugs/Alcohol: Social Info Question Answer Notes Drugs Have you used drugs other than those for medical reasons in the past 12 months? No Alcohol Screen Did you have a drink containing alcohol in the past year? Yes Points 0 Interpretation Negative Tobacco Use: Social Info Question Answer Notes Tobacco Use/Smoking Are you a former smoker Tobacco use other than smoking: Are you an other tobac co user? No Plan Of Treatment No Information
--- OUTSIDE RECORDS SUMMARY | 2025-01-13 09:12 | XMS_ITS | Encounter Summary ---
Author Organization [facility] Address [address] [place] [address] Care Team Providers Care Manager Small Business Name Role Phone Mitesh Hollins MD Primary Care Provider + Encounter Details Date Type Department Care Team (Late st Contact Info) Description 12/15/2024 Telephone [facility] MATERNAL MEDICINE [address] [facility] [address] [place] [address] Clemencia Prajapati, RN Social History Tobacco Use Types Packs/Day Years Used Date Smoking Tobacco: Never Smokeless Tobacco: Never Alcohol Use Standard Drinks/Week Comments No 0 (1 standard drink = 0.6 oz [...] on file documented as of this encounter Miscellaneous Notes * Telephone Encounter - Clemencia Prajapati RN - 12/15/2024 2:14 PM EDT Left voicemail requesting NIPT/genetic testing results be faxed. documented in this encounter Plan of Treatment Not on file documented as of this encounter Visit Diagnoses Not on filedocumented in this encounter Care Teams Manager Small Business Relationship Specialty Start Date End Date Mitesh Hollins MD PCP - General Family Medicine 10/29/17 documented as of this encounter
== END 2025-01-13 23:59 | disposition home or self-care (01) ==
LOC: RAD 08:54
PROVIDERS: PCP Obstetrics & Gynecology; Visit Provider Obstetrics & Gynecology
DX: O28.3 Abnormal ultrasonic finding on antenatal screening of mother (principal); Z36.2 Encounter for other antenatal screening follow-up; Z3A.32 32 weeks gestation of pregnancy
CPT/HCPCS: 76816; 76819

== ENCOUNTER 2025-02-04 12:00 | Outpatient (CLI) | payer OTHER, SELFPAY ==
--- OUTSIDE RECORDS SUMMARY | 2024-12-16 13:30 | XMS_ITS | Encounter Summary ---
Author Organization [facility] Address [address] [place] [address] Care Team Providers Care Pulpwood Dealer Name Role Phone Mitesh Hollins MD Primary Care Provider + Reason for Visit * Reason Comments Multiple placenta lakes Encounter Details Date Type Department Care Team (Late st Contact Info) Description 12/16/2024 1:30 PM EDT Office Visit [facility] MATERNAL MEDICINE [address] [place] [phone] Cruz Brink MD [address] [facility] [address] [place] [address] Supervision of other normal , antepartum (Primary Dx) Social History Tobacco Use Types Packs/Day Years Used Date Smoking Tobacco: Never Smokeless Tobacco: Never Alcohol Use Standard Drinks/Week Comments Never 0 (1 standard drink = 0.6 oz pur e alcohol) Abuse Screen Answer Date Recorded Unsafe at Home or Work/School Not on file Feels Threatened by Someone? Not on file 01/2023 Does Anyone Keep You from Co ntacting Others or Doint Things Outside the Home? Not on file 03/05/2023 Physical Sign of Abuse Present Not on file 1 Housing Stability Answer Date Recorded Current Living Arrangements Not on file 01/2023 Potentially Unsafe Housing Conditions Not on dennis e 03/05/2023 Family and Community Support Answer Marquis e Recorded Help with Day-to-Day Activities Not on file 03/05/2023 Lonely or Isolated Not on file 03/05/2023 Employment Answer Date Recorded Do you want help finding or keeping work or a timmy b? Not on file 03/05/2023 Disabilities Answer Date Recorded Concentrating, Remembering, or Making Decisions Difficulty Not on file 03/05/2023 Doing Errands Independently Difficulty Not on fi le 03/05/2023 Education Answer Date Recorded Help with school or training? Not on file Preferred Language Not on file 03/05/2023 Estimated Date of Delivery Comme nts Yes 03/06/2025 Date entered shane or to episode creation Sex and Gender Information Value Date Recorded Sex Assigned at Not on file Legal Sex Female 12:19 PM EDT Gender Identity Not on file Sexual Orientation Not on file documented as of this encounter Last Filed Vital Signs Vital Sign Reading Time Taken Comments Blood Pressure 117/73 12/16/2024 1:58 PM EDT Pulse - - Temperature - - Respiratory Rate - - Oxygen Saturation - - Inhaled Oxygen Concentration - - Weight 66.1 kg (145 lb 12.8 oz) 12/16/2024 1:58 PM EDT Height 165.1 cm (5' 5 ) 12/16/2024 2:01 PM EDT Body Mass Index 24.26 12/16/2024 1:58 PM EDT documented in this encounter Progress Notes * Clemencia Prajapati RN - 12/16/2024 1:30 PM EDT Patient denies any leaking of fluid, vaginal bleeding, or contractions. NIPT declined. Patient reports next follow-up appointment with Dr. Lee's office is 12/25. * Cruz Brink MD - 12/16/2024 1:30 PM EDT Documentation of the ultrasound findings, images, and interpretations will be available in the patient's Viewpoint report which is located in the imaging tab in chart review. documented in this encounter Plan of Treatment Not on file documented as of this encounter Visit Diagnoses Diagnosis Supervision of other normal , antepartum- Primary documented in this encounter Care Teams Pulpwood Dealer Relationship Specialty Start Date End Date Mitesh Hollins MD PCP - General Family Medicine 10/29/17 documented as of this encounter
--- OUTSIDE RECORDS SUMMARY | 2024-12-16 13:30 | XMS_ITS | Encounter Summary ---
Author Organization [facility] Address [address] [place] [address] Care Team Providers Care Director Of Special Events Name Role Phone Mitesh Hollins MD Primary Care Provider + Reason for Referral * Diagnostic Imaging (Routine) - Closed Specialty Diagnoses / Procedures Referred By Contac t Referred To Contact Radiology Diagnoses Abnormal ultrasound Placental abnormality, antepartum , unspecified gestational age Procedures US [facility] Diagnostic [place] Libertad Lee DO [address] [place] [address] Phone: tel: fax: [facility] US PER DIAG CTR [address] [place] [address] Phone: tel: Referral ID Status Reason Start Date Expiration Date Visits Re quested Visits Authorized [id number] Closed 12/02/2024 03/03/2026 1 1 Reason for Visit * Diagnostic Imaging (Routine) - Closed Specialty Diagnoses / Procedures Referred By Contac t Referred To Contact Radiology Diagnoses Abnormal ultrasound Placental abnormality, antepartum , unspecified gestational age Procedures US [facility] Diagnostic [place] Libertad Lee DO [address] [place] [address] Phone: tel: fax: [facility] US PER DIAG CTR [address] [place] [address] Phone: tel: Referral ID Status Reason Start Date Expiration Date Visits Re quested Visits Authorized [id number] Closed 12/02/2024 03/03/2026 1 1 Encounter Details Date Type Department Care Team (Latest Contact Info) Description 12/16/2024 1:30 PM EDT - 12/16/2024 11:59 PM EDT Hospital Encounter [facility] PER DIAG CTR [address] [place] [id number] Libertad Lee, [address] [facility] [address] [place] [address] Abnormal ultrasound; Placental abnormality, antepartum; [...] Procedure Name Priority Date/Time Associated Diagnosis Comments [facility] Routine 12/16/2024 2:24 PM EDT Abnormal ultrasound Placental abnormality, antepartum , unspecified gestational age documented in this encounter Results * [facility] (12/16/2024 2:24 PM EDT) Anatomical Region Laterality Modality Ultrasound 12/16/2024 2:08 PM EDT Narrative 12/16/2024 2:34 PM EDT PAT NAME: NATIVIDAD CONSTANTINO MED REC#: [id number] DA: 2000 PAT GEND: F PAT TYPE: O EXAM MARQUIS: [id number] REF PHYS LIBERTAD LEE Comparison Studies There [...] EFW (oz) 13 oz EFW by: Hadlock ([id number]) Extended Tibia 45.1 mm 27w 4d 20% Violeta Fibula 42.9 mm 26w 3d 20% Violeta Radius 35.3 mm 24w 5d 16% Violeta Ulna 41.9 mm 27w 1d 4% Violeta Cav. septi pel. tr 5.0 mm Quality Control Chemist 5.4 mm CM 8.8 mm 93% Nicolaides [...] normal IVC: normal 3-vessel view: Appears normal 0-hbqurs-maqgmyp view: Appears normal Rt lung: Appears normal [...] scan in your office. Coding ======= Description: [id number] Detailed Cast Associate: Christie Macario RDMS Physician: Cruz Brink MD, FACOG Electronically signed by: Cruz Brink MD, FACOG at: 14:34 Procedure Note Cruz Brink MD - 12/16/2024 PAT NAME: NATIVIDAD CONSTANTINO MED REC#: [id number] DA: 2000 PAT GEND: F PAT TYPE: O EXAM MARQUIS: [id number] REF PHYS LIBERTAD LEE Comparison Studies There are no relevant prior studies to which this study is beingcompared Patient Status Outpatient Indication ======== Concern for multiple placental lakes. Maternal Assessment Lwyxxq547 cm Height (ft)5 ft Height (in)5 in Ccuhnu24 kg Weight (lb)145 lb BMI24.16 kg/m Method ======= Transabdominal ultrasound examination. View: Adequate view ========= [place] . Number of fetuses: 1 Dating ====== Method of dating:based on stated ABBIE GA by prior [id number] w + 4 d ABBIE by prior assessment:03/06/2025 Ultrasound examination on:12/16/2024 GA by U/S based upon:AC, BPD, Femur, HC GA by U/S29 w + 2 d ABBIE by U/S:03/01/2025 Assigned:based on stated ABBIE, selected on 12/16/2024 Assigned GA28 w + 4 d Assigned ABBIE:03/06/2025 [id number] d Biometry Standard BPD74.3 mm 29w 6d 77% Hadlock OFD98.4 mm 31w 6d 99% Violeta HC275.4 mm 30w 1d 65% Hadlock Cerebellum tr36.3 mm 30w 0d 91% Hill AC238.3 mm 28w 1d 29% Hadlock Femur54.9 mm 29w 0d 47% Hadlock Hsbpkoj98.9 mm 27w 5d 18% Violeta HC / AC1.16 EFW1,272 g 28w 3d 42% Hadlock EFW (lb)2 lb EFW (oz)13 oz EFW by:Hadlock ([id number]) Extended Tibia45.1 mm 27w 4d 20% Violeta Nxbfmm47.9 mm 26w 3d 20% Violeta Cynxrv61.3 mm 24w 5d 16% Violeta Ulna41.9 mm 27w 1d 4% Violeta Cav. septi pel. tr5.0 mm Vp5.4 mm CM8.8 mm 93% Nicolaides Nasal bone8.8 mm Head / Face / Neck Cephalic index0.76 16% Nicolaides Extremities / Bony Struc FL / BPD0.74 FL / HC0.20 FL / AC0.23 Other Structures UIS029 bpm General Evaluation Cardiac activity present. FHR [...] view:Appears normal SVC:normal IVC:normal 3-vessel view:Appears normal 7-vavykw-kqerpvs view:Appears normal Rt lung:Appears normal Lt lung:normal [...] Structures Uterus / Cervix Cervix:Visualized Approach:Transabdominal Cervical rrsome64.5 mm Ovaries / Tubes / Adnexa Rt ovary:Visualized Lt ovary:Visualized Impression Today's exam reveals a SIUP with biometry consistent with dates. Fetalanatomic survey appears normal. Fluid is normal. The placenta is anteriorwith multiple lakes though growth is normal. The TA cervical length appears adequate Recommendation Recommend 32 week growth scan in your office. Coding ======= Description:[id number] Detailed Cast Associate: Christie Macario RDMS Physician: Cruz Brink MD, FACOG Electronically signed by: Cruz Brink MD, FACOG at: 14:34 us Libertad Lee DO IMG US ORDERABLES Final Result documented in this encounter Visit Diagnoses Diagnosis Abnormal ultrasound Placental abnormality, antepartum , unspecified gestational age documented in this encounter Care Teams Director Of Special Events Relationship Specialty Start Date End Date Mitesh Hollins MD PCP - General Family Medicine 10/29/17 documented as of this encounter
--- OUTSIDE RECORDS SUMMARY | 2025-02-06 11:15 | XMS_ITS | Encounter Summary ---
Author Organization [facility] Address [address] [place] [address] Care Team Providers Care Veterinary Hospital Attendant Name Role Phone Mitesh Hollins MD Primary Care Provider + Encounter Details Date Type Department Care Team (Late st Contact Info) Description 12/15/2024 Telephone [facility] MATERNAL MEDICINE [address] [facility] [address] [place] [address] Clemencia Prajapati, RN Social History [...] on filedocumented in this encounter Care Teams Veterinary Hospital Attendant Relationship Specialty Start Date End Date Mitesh Hollins MD PCP - General Family Medicine 10/29/17 documented as of this encounter
--- OUTSIDE RECORDS SUMMARY | 2025-02-06 11:15 | XMS_ITS | Encounter Summary ---
Author Organization [facility] Address [address] [place] [address] Care Team Providers Care Sr. Director Name Role Phone Mitesh Hollins MD Primary [...] on filedocumented in this encounter Care Teams Sr. Director Relationship Specialty Start Date End Date Mitesh Hollins MD PCP - General Family Medicine 10/29/17 documented as of this encounter
--- OUTSIDE RECORDS SUMMARY | 2025-02-06 11:15 | XMS_ITS | Clinical Summary ---
Author Organization [facility] Address [address] [place] [address] Care Team Providers Care Qlikview Developer Name Role Phone Mitesh Hollins MD Primary [...] - 12/16/2024 11:59 PM EDT Hospital Encounter [facility] US PER DIAG CTR [address] [place] [address] Libertad Lee DO Abnormal ultrasound; Placental abnormality, antepartum; , unspecified gestational age Discharge Disposition: Home or Self Care 12/16/2024 1:30 PM EDT Office Visit [facility] MATERNAL MEDICINE [address] [facility] [address] [place] [address] Cruz Brink MD Supervision of other normal , antepartum (Primary Dx) 12/16/2024 Travel 12/15/2024 Telephone [facility] MATERNAL MEDICINE [address] [facility] [address] [place] [address] Clemencia Prajapati, RN from Last [...] PAP SMEAR 2019 COVID-19 Vaccine (2 - 2024-2 6 season) 2025 05/16/2021 RSV Vaccine - Adults (1 - Ri sk 1-dose series) 01/26/2025 INFLUENZA VACCINE 02/25/2025 TDAP/TD VACCINES (2 - Td or Tdap) 07/11/2033 024 Pneumococcal Vaccine 0-49 Aged Out No longer eligible based on patient's age to complete this topic Procedures Procedure Name Priority Date/Time Associated Diagnosis Comments [facility] Routine 12/16/2024 2:24 PM EDT Abnormal ultrasound Placental abnormality, antepartum , unspecified gestational age from Last 3 Months Results * [facility] (12/16/2024 2:24 PM EDT) Anatomical Region Laterality Modality Ultrasound 12/16/2024 2:08 PM EDT Narrative 12/16/2024 2:34 PM EDT PAT NAME: NATIVIDAD CONSTANTINO [facility] REC#: [id number] DA: 2000 PAT GEND: F PAT TYPE: O EXAM MARQUIS: [id number] REF PHYS LIBERTAD LEE Comparison Studies There [...] EFW (oz) 13 oz EFW by: Hadlock (VHT-ZF-AV-FL) Extended Tibia 45.1 mm 27w 4d 20% Violeta Fibula 42.9 mm 26w 3d 20% Violeta Radius 35.3 mm 24w 5d 16% Violeta Ulna 41.9 mm 27w 1d 4% Violeta Cav. septi pel. tr 5.0 mm Senior Ios Software Engineer 5.4 mm CM 8.8 mm 93% Nicolaides [...] normal IVC: normal 3-vessel view: Appears normal 1-zognmh-nrmylwu view: Appears normal Rt lung: Appears normal [...] scan in your office. Coding ======= Description: 80729-97 Detailed Laboratory Apparatus Glass Blower: Christie Macario RDMS Physician: Cruz Brink MD, FACOG Electronically signed by: Cruz Brink MD, FACOG at: 14:34 Procedure Note Cruz Brink MD - 12/16/2024 PAT NAME: NATIVIDAD CONSTANTINO MED REC#: [id number] DA: 2000 PAT GEND: F PAT TYPE: O EXAM MARQUIS: [id number] REF PHYS LIBERTAD LEE Comparison Studies There are no relevant prior studies to which this study is beingcompared Patient Status Outpatient Indication ======== Concern for multiple placental lakes. Maternal Assessment Xgngrm791 cm Height (ft)5 ft Height (in)5 in Pivzam82 kg Weight (lb)145 lb BMI24.16 kg/m Method ======= Transabdominal ultrasound examination. View: Adequate view ========= [place] . Number of fetuses: 1 Dating ====== Method of dating:based on stated ABBIE GA by prior yvmdsqbcbe44 w + 4 d ABBIE by prior assessment:03/06/2025 Ultrasound examination on:12/16/2024 GA by U/S based upon:AC, BPD, Femur, HC GA by U/S29 w + 2 d ABBIE by U/S:03/01/2025 Assigned:based on stated ABBIE, selected on 12/16/2024 Assigned GA28 w + 4 d Assigned ABBIE:03/06/2025 znqyti622 d Biometry Standard BPD74.3 mm 29w 6d 77% Hadlock OFD98.4 mm 31w 6d 99% Violeta HC275.4 mm 30w 1d 65% Hadlock Cerebellum tr36.3 mm 30w 0d 91% Hill AC238.3 mm 28w 1d 29% Hadlock Femur54.9 mm 29w 0d 47% Hadlock Fvlokal30.9 mm 27w 5d 18% Violeta HC / AC1.16 EFW1,272 g 28w 3d 42% Hadlock EFW (lb)2 lb EFW (oz)13 oz EFW by:Hadlock (EEP-AE-HI-FL) Extended Tibia45.1 mm 27w 4d 20% Violeta Kqpcap19.9 mm 26w 3d 20% Violeta Ailibm35.3 mm 24w 5d 16% Violeta Ulna41.9 mm 27w 1d 4% Violeta Cav. septi pel. tr5.0 mm Vp5.4 mm CM8.8 mm 93% Nicolaides Nasal bone8.8 mm Head / Face / Neck Cephalic index0.76 16% Nicolaides Extremities / Bony Struc FL / BPD0.74 FL / HC0.20 FL / AC0.23 Other Structures DXH472 bpm General Evaluation Cardiac activity present. FHR [...] view:Appears normal SVC:normal IVC:normal 3-vessel view:Appears normal 3-smmogn-vaslvyc view:Appears normal Rt lung:Appears normal Lt lung:normal [...] Structures Uterus / Cervix Cervix:Visualized Approach:Transabdominal Cervical xkmbhe14.5 mm Ovaries / Tubes / Adnexa Rt ovary:Visualized Lt ovary:Visualized Impression Today's exam reveals a SIUP with biometry consistent with dates. Fetalanatomic survey appears normal. Fluid is normal. The placenta is anteriorwith multiple lakes though growth is normal. The TA cervical length appears adequate Recommendation Recommend 32 week growth scan in your office. Coding ======= Description:47912-01 Detailed Laboratory Apparatus Glass Blower: Christie Macario RDMS Physician: Cruz Brink MD, FACOG Electronically signed by: Cruz Brink MD, KULDIPOG at: 14:34 us Libertad Lee DO IMG US ORDERABLES Final Result from Last 3 Months Insurance [facility]AN [facility] Care Teams Qlikview Developer Relationship Specialty Start Date End Date Mitesh Hollins MD PCP - General Family Medicine 10/29/17
--- OUTSIDE RECORDS SUMMARY | 2025-02-06 11:15 | XMS_ITS | Clinical Summary ---
Author Organization [facility] Address [address] [place] [address] Care Team Providers Care Cell Cleaner Name Role Phone Brandy Vicente BRENDA Primary Care Provider +1- [phone] Allergies No known active allergies Medications valACYclovir [...] Tdap) 2017 09/16/1999, 1998 [facility]-Pap Smear 2019 [id number] Vaccine ( season) 2024 05/16/2021 [facility]-Influenza Vaccine [...] complete this topic Insurance ANTH Care Teams Cell Cleaner Relationship Specialty Start Date End Date Brandy Vicente APRN [address] [facility] [place] [address] PCP - General 10/17/22
== END 2025-02-04 23:59 | disposition home or self-care (01) ==
LOC: LAB.DROPOF 02-06 11:10
PROVIDERS: PCP Obstetrics & Gynecology; Visit Provider Obstetrics & Gynecology
DX: Z36.9 Encounter for antenatal screening, unspecified (principal); Z3A.33 33 weeks gestation of pregnancy
CPT/HCPCS: 86403

== ENCOUNTER 2025-02-17 18:38 | Inpatient (IN) | payer OTHER, SELFPAY ==
--- OUTSIDE RECORDS SUMMARY | 2025-02-17 17:56 | XMS_ITS | Patient Health Record ---
Author Organization [facility] Address [address] [facility] [address] [place] [address] Care Team Providers Care Fret Saw Operator Name Role Phone Libertad Bradshaw Unavailable [phone] Reason For Referral No Information Social History [...]
--- OUTSIDE RECORDS SUMMARY | 2025-02-17 17:56 | XMS_ITS | Clinical Summary ---
Author Organization [facility] Address [address] [place] [address] Care Team Providers Care Aoc Plans Intelligence Officer Name Role Phone Mitesh Hollins MD Primary [...] - 12/16/2024 11:59 PM EDT Hospital Encounter [facility] US PER DIAG CTR [address] [place] [address] Libertad Lee DO Abnormal ultrasound; Placental abnormality, antepartum; , unspecified gestational age Discharge Disposition: Home or Self Care 12/16/2024 1:30 PM EDT Office Visit [facility] MATERNAL MEDICINE [address] [facility] [address] [place] [address] Cruz Brink MD Supervision of other normal , antepartum (Primary Dx) 12/16/2024 Travel 12/15/2024 Telephone [facility] MATERNAL MEDICINE [address] [facility] [address] [place] [address] Clemencia Prajapati, RN from Last [...] HEPATITIS C SCREENING 02/08/2017 PAP SMEAR 2019 INFLUENZA VACCINE 12/26/2024 RSV Vaccine - Adults (1 - Ri sk 1-dose series) 01/26/2025 TDAP/TD VACCINES (2 - Td or Tdap) 07/11/2033 024 Pneumococcal Vaccine 0-49 Aged Out No longer eligible based on patient's age to complete this topic Procedures Procedure Name Priority Date/Time Associated Diagnosis Comments [facility] Routine 12/16/2024 2:24 PM EDT Abnormal ultrasound Placental abnormality, antepartum , unspecified gestational age from Last 3 Months Results * [facility] (12/16/2024 2:24 PM EDT) Anatomical Region Laterality Modality Ultrasound 12/16/2024 2:08 PM EDT Narrative 12/16/2024 2:34 PM EDT PAT NAME: NATIVIDAD CONSTANTINO [facility] REC#: [id number] DA: 2000 PAT GEND: F PAT TYPE: O EXAM MARQUIS: [id number] REF PHYS LIBERTAD LEE Comparison Studies There [...] EFW (oz) 13 oz EFW by: Hadlock ([id number]-MY-KJ-FL) Extended Tibia 45.1 mm 27w 4d 20% Violeta Fibula 42.9 mm 26w 3d 20% Violeta Radius 35.3 mm 24w 5d 16% Violeta Ulna 41.9 mm 27w 1d 4% Violeta Cav. septi pel. tr 5.0 mm Hydrographic Engineer 5.4 mm CM 8.8 mm 93% [...] normal IVC: normal 3-vessel view: Appears normal 3-ghmhbe-nmveudl view: Appears normal Rt lung: Appears normal [...] scan in your office. Coding ======= Description: 14211-01 Detailed Testing And Regulating Chief: Christie Macario RDMS Physician: Cruz Brink MD, KULDIPOG Electronically signed by: Cruz Brink MD, FACOG at: 14:34 Procedure Note Cruz Brink MD - 12/16/2024 PAT NAME: NATIVIDAD CONSTANTINO MED REC#: [id number] DA: 2000 PAT GEND: F PAT TYPE: O EXAM MARQUIS: [id number] REF PHYS LIBERTAD LEE Comparison Studies There are no relevant prior studies to which this study is beingcompared Patient Status Outpatient Indication ======== Concern for multiple placental lakes. Maternal Assessment Achxar386 cm Height (ft)5 ft Height (in)5 in Tuoogl21 kg Weight (lb)145 lb BMI24.16 kg/m Method ======= Transabdominal ultrasound examination. View: Adequate view ========= [place] . Number of fetuses: 1 Dating ====== Method of dating:based on stated ABBIE GA by prior zpipwisbzh04 w + 4 d ABBIE by prior assessment:03/06/2025 Ultrasound examination on:12/16/2024 GA by U/S based upon:AC, BPD, Femur, HC GA by U/S29 w + 2 d ABBIE by U/S:03/01/2025 Assigned:based on stated ABBIE, selected on 12/16/2024 Assigned GA28 w + 4 d Assigned ABBIE:03/06/2025 ckobgo515 d Biometry Standard BPD74.3 mm 29w 6d 77% Hadlock OFD98.4 mm 31w 6d 99% Violeta HC275.4 mm 30w 1d 65% Hadlock Cerebellum tr36.3 mm 30w 0d 91% Hill AC238.3 mm 28w 1d 29% Hadlock Femur54.9 mm 29w 0d 47% Hadlock Qyaluyl78.9 mm 27w 5d 18% Violeta HC / AC1.16 EFW1,272 g 28w 3d 42% Hadlock EFW (lb)2 lb EFW (oz)13 oz EFW by:Hadlock (XEB-UT-OO-FL) Extended Tibia45.1 mm 27w 4d 20% Violeta Sfoaso64.9 mm 26w 3d 20% Violeta Zgycbw12.3 mm 24w 5d 16% Violeta Ulna41.9 mm 27w 1d 4% Violeta Cav. septi pel. tr5.0 mm Vp5.4 mm CM8.8 mm 93% Nicolaides Nasal bone8.8 mm Head / Face / Neck Cephalic index0.76 16% Nicolaides Extremities / Bony Struc FL / BPD0.74 FL / HC0.20 FL / AC0.23 Other Structures QWX540 bpm General Evaluation Cardiac activity present. FHR [...] view:Appears normal SVC:normal IVC:normal 3-vessel view:Appears normal 1-zxhiem-meyvbje view:Appears normal Rt lung:Appears normal Lt lung:normal [...] Structures Uterus / Cervix Cervix:Visualized Approach:Transabdominal Cervical levulu99.5 mm Ovaries / Tubes / Adnexa Rt ovary:Visualized Lt ovary:Visualized Impression Today's exam reveals a SIUP with biometry consistent with dates. Fetalanatomic survey appears normal. Fluid is normal. The placenta is anteriorwith multiple lakes though growth is normal. The TA cervical length appears adequate Recommendation Recommend 32 week growth scan in your office. Coding ======= Description:86194-78 Detailed Testing And Regulating Chief: Christie Macario RDMS Physician: Cruz Brink MD, FACOG Electronically signed by: Cruz Brink MD, FACOG at: 14:34 us Libertad Lee DO IMG US ORDERABLES Final Result from Last 3 Months Insurance [place] [employer] [id number] [facility] PLAN [facility] Care Teams Aoc Plans Intelligence Officer Relationship Specialty Start Date End Date Mitesh Hollins MD PCP - General Family Medicine 10/29/17
--- OUTSIDE RECORDS SUMMARY | 2025-02-17 17:56 | XMS_ITS | Clinical Summary ---
Author Organization [facility] Address [address] [facility] [place] [address] Care Team Providers Care Weapons Officer Name Role Phone Brandy Vicente BRENDA Primary Care Provider +1- [phone] Allergies No known active allergies Medications valACYclovir [...] Tdap) 2017 09/16/1999, 1998 [facility]-Pap Smear 2019 [id number] Vaccine ( season) 2025 05/16/2021 [facility]-Influenza Vaccine (#1) 2025 [facility]Y-Zoster Vaccines [...] complete this topic Insurance ANTH Care Teams Weapons Officer Relationship Specialty Start Date End Date Brandy Vicente APRN [address] [place] [address] PCP - General 10/17/22
[2025-02-17 18:13] VITALS: BMI 27.6
[2025-02-17 18:49] LABS: Microscopic, Urine URINE MICROSCOPIC (MICROSCOPIC)
[2025-02-17 18:54] LABS: Bilirubin,Urine Negative (Negative); Color,Urine YELLOW (Yellow); Glucose,Urine (UA) Negative (Negative); Ketones,Urine Negative (Negative); Leukocyte Esterase,Urine Negative (Negative); PH,Urine 6.5 (5.0-8.5); Protein,Urine Negative (Negative); Specific Gravity, Urine 1.015 (1.005-1.030); Urobilinogen,Urine 0.2 EU/dl (0.2)
[2025-02-17 18:58] LABS: Hematocrit 36.9 % (37.0-47.0); Hemoglobin 12.3 g/dL (12.2-16.2); Immature Granulocytes % 4.7 %; Mean Corpuscular HGB Conc 33.3 g/dL (31.8-35.4); Mean Corpuscular Hemoglobin 28.1 pg (27.0-31.2); Mean Corpuscular Volume 84.4 fl (81-99); Nucleated Red Blood Cells % 0 %; Platelet Count 268 K/mm3 (142-424); Red Blood Count 4.37 M/mm3 (4.20-5.40); Red Cell Distribution Width-SD 38.9 fL; White Blood Count 15.9 K/mm3 (4.8-10.8)
[2025-02-17] MEDS: LACTATED RINGERS 1000ML 1,000 ML 999 ML IV (19:00)
[2025-02-17 19:03] LABS: Fetal Membrane Rupture (Rapid) Positive (Negative)
[2025-02-17 19:20] VITALS: BP 122/72; PULSE 86; RESP 16; TEMP 36.7; O2SAT 100
[2025-02-17 19:50] LABS: Total Cells Counted 100
[2025-02-17 19:50] LABS: Bacteria,Urine 4+ /lpf
[2025-02-17 19:51] LABS: Polychromasia 1+
--- NOTE | 2025-02-17 20:06 | EXP.ANES.CKL ---
[facility] Disclaimer: The information contained in this section may have been updated after the patient was seen, as this information can be updated by other users. 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 caffeine: Yes Have you lived/traveled outside US in past 30 days?: No Contact w/someone who lives/traveled outside US past 30 days?: No Exposure to someone with infectious disease in past 14 days?: No Do you have a fever (greater than 100.4 F or 38 C)?: No Have you tested positive for COVID-19?: No Exposed to someone with COVID-19 in past 14 days?: No Do you have a sore throat?: No Do you have a cough?: No Do you have any weakness?: No Do you have any diarrhea?: No Are you experiencing any unusual bleeding?: No Do you have any muscle aches/pain?: No Do you have any abdominal pain?: No Are you experiencing loss of taste or smell?: No [facility] Anesthesia Checklist Patient Identification Patient Identification: Arm Band Structural Data Admitted From: Inpatient Planned Operative Procedure/s: Labor Epidural Consent for Planned Operative Procedure(s) Verified: Yes Verified Documents: Surgical Consent and History and Physical Additional verifications Anesthesia Reactions: No Hx Blood Transfusions: No Blood Transfusion Reaction: No Neurological Assessment Level of Consciousness: Awake, Alert and Appropriate Anesthesia Plan Anesthesia Risk discussed: Yes Anesthesia Plan: Verified ASA Class: II Anesthesia Type: Epidural
[2025-02-17] MEDS: ePHEDrine SULF 50MG/ML VIAL 10 MG IV (20:19)
[2025-02-17] MEDS: DEXTROSE 5%-LACTATED RINGERS 1,000 ML 125 ML IV (20:31)
[2025-02-17 21:00] VITALS: TEMP 36.8
[2025-02-17] MEDS: OXYTOCIN/RINGERS LACTATE 30 UNITS/500 ML BAG 999 UNITS IV (22:55)
[2025-02-17 23:00] VITALS: TEMP 36.6
--- NOTE | 2025-02-17 23:05 | P.HP_ITS ---
OB - H&P: HPI Antepartum History of Present Illness Chief complaint: Leakage of fluid, regular contractions History of present illness: Mrs David Hannah is a 24 yo at 37w4d who presents to [facility] L&D with leakage of fluid and contractions that started at 1700. Cervical exam was 3-4/70/-1 with thick yellow meconium noted. She has had good care. GBS negative. History of Present Criteria for establishing EDC:: based on 1st trimester US only care: good care Ultrasounds: abnormal US findings (placental lakes noted on ultrasounds) Obstetrical complications: none Medical complications: none Labs Blood type: O (+) positive Rubella: immune RPR/VDRL: nonreactive GBS status: negative HBsAG: negative PFSH [facility] Disclaimer: The information contained in this section may have been updated after the patient was seen, as this information can be updated by other users. 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 caffeine: Yes Have you lived/traveled outside [place] in past 30 days?: No Contact w/someone who lives/traveled outside US past 30 days?: No Exposure to someone with infectious disease in past 14 days?: No Do you have a fever (greater than 100.4 F or 38 C)?: No Have you tested positive for COVID-19?: No Exposed to someone with COVID-19 in past 14 days?: No Do you have a sore throat?: No Do you have a cough?: No Do you have any weakness?: No Do you have any diarrhea?: No Are you experiencing any unusual bleeding?: No Do you have any muscle aches/pain?: No Do you have any abdominal pain?: No Are you experiencing loss of taste or smell?: No Other Medical History Have you received the Flu Vaccine for this season: No Have you received the Pneumonia Vaccine: No Review of Systems Review of Systems Review of systems:: pertinent systems reviewed and negative unless documented below Meds Home Medications and Allergies Home Medications ?Medication ?Instructions ?Recorded ?Confirmed ?Type vits no.126-ferrous fum 1 tab PO DAILY Supple ment 01/24/23 02/13/25 History 28 mg iron-folic acid 800 mcg tablet (Classic ) New Prescriptions to Start Prescriptions: Allergies Allergy/AdvReac Type Severity Reaction Status Date / Time No Known Allergies Allergy Verified 02/13/25 10:35 OB - H&P: Exam Constitutional no acute distress and cooperative Routine HEENT Exam Head: Present normocephalic and atraumatic Eye: Absent conjunctivae pink ENT: Present mucous membranes moist Routine Neck Exam Present full ROM Routine Respiratory Exam Present CTA bilaterally and normal respiratory effort Routine Cardiovascular Exam Present RRR Routine Abdominal Exam Present soft (Gravid); Absent tenderness Routine Rectal Exam Patient deferred: visual exam Routine Exam External: Present normal urethra appearance; Absent erythema, swelling, tenderness, lesions, lacerations or vulvar erythema Routine Extremities Exam Present full ROM; Absent edema or calf tenderness Routine Neurological Exam Present alert, moving all extremities and normal speech Routine Psychiatric Exam Present normal affect and cooperative OB - Results Labs Labs: Short CBC 02/17/25 Range/Units 18:31 WBC 15.9 H (4.8-10.8) K/mm3 Hgb 12.3 (12.2-16.2) g/dL Hct 36.9 L (37.0-47.0) % Plt Count 268 (142-424) K/mm3 Urine 02/17/25 Range/Units 16:10 Urine Color Yellow (Yellow) Urine Appearance Sl cloudy (Clear) Urine pH 6.5 (5.0-8.5) Ur Specific [place] 1.015 (1.005-1.030) Urine Protein Negative (Negative) Urine Glucose (UA) Negative (Negative) OB - A/P Antepartum (1) SROM (spontaneous rupture of membranes): Status: Acute (2) Spontaneous onset of labor: Status: Acute (3) 37 weeks gestation of : Status: Resolved (4) Meconium in amniotic fluid: Status: Acute Additional Plan Planning to breastfeed?: Yes Additional Information:: Admit to [facility] for SROM and active labor GBS negatie Close monitoring Epidural if desired Anticipate
--- NOTE | 2025-02-17 23:11 | EXP.DN ---
Delivery Note Delivery Date:: 02/17/25 Delivery Time:: 22:53 Anesthesia Type: Epidural Was labor medically induced?: No Gestational age (weeks): 37 Infant delivered prior to 39 weeks?: Yes Justification for early elective delivery:: Active Labor and Premature ROM Gender: Female at 1 minute: 6 at 5 minutes: 7 Delivery Procedure:: Mom complete with epidural. Pushed for approximately 5 minutes. Head delivered spontaneously over intact perineum in OA position. No nuchal cord. Anterior shoulder delivered with gentle downward pressure. Posterior shoulder and remainder of body delivered spontaneously. Baby placed on maternal abdomen, mouth and nares bulb suctioned, warmed/dried and stimulated. Delayed cord clamping was performed for 60 seconds. Cord was clamped and cut by father of baby. Cord blood was obtained. Placenta delivered spontaneously and intact. Placenta will be sent to pathology for review secondary to thick meconium and placental lakes. No lacerations. Mom and baby were skin to skin and doing well after delivery. Live female baby (baby's name is Jackeline) APGARs 6 (1 min), 7 (5 min), 9 (10 min) EBL 50 mL Placental Delivery Description: Spontaneous
[2025-02-18] MEDS: IBUPROFEN 400 MG TABLET 800 MG PO ×3 (01:08→20:39)
[2025-02-18 04:20] VITALS: BP 109/67; PULSE 76; RESP 18; TEMP 36.7; O2SAT 98
[2025-02-18] MEDS: ACETAMINOPHEN 500MG TAB 1000 MG PO ×2 (04:32→13:43)
[2025-02-18 05:50] LABS: Hematocrit 32.8 % (37.0-47.0); Hemoglobin 11.2 g/dL (12.2-16.2); Immature Granulocytes % 2.4 %; Mean Corpuscular HGB Conc 34.1 g/dL (31.8-35.4); Mean Corpuscular Hemoglobin 28.9 pg (27.0-31.2); Mean Corpuscular Volume 84.8 fl (81-99); Nucleated Red Blood Cells % 0 %; Platelet Count 253 K/mm3 (142-424); Red Blood Count 3.87 M/mm3 (4.20-5.40); Red Cell Distribution Width-SD 39.8 fL; White Blood Count 24.5 K/mm3 (4.8-10.8)
[2025-02-18 07:04] LABS: RBC Morphology Normal; Total Cells Counted 100
--- NOTE | 2025-02-18 13:17 | P.PN_ITS ---
Subjective *Date: 02/18/25 *Time: 13:17 Interval history: PPD # 1 s/p Feeling well. Pain controlled. Breast feeding. Lochia is appropriate. Voiding without difficulty and passing flatus. Tolerating regular diet. Denies fever/chills, chest pain and shortness of breath. No headaches, vision changes, lightheadedness/dizziness. No lower extremity swelling. Ambulating well ad severo. Medical Exam Vital signs and Labs for Last 24 Hours: Vital Signs Temp Pulse Resp BP Pulse Ox O2 Del Method 02/18/25 04:20 98.1 F 76 18 109/67 L 98 Room Air 02/17/25 23:00 97.9 F 02/17/25 21:00 98.2 F 02/17/25 19:20 98.0 F 86 16 122/72 100 Room Air Intake and Output 02/17/25 02/18/25 02/18/25 23:59 07:59 15:59 Intake Total 1249.75 / 1249.75 1250.25 / 1250.25 Balance 1249.75 / 1249.75 1250.25 / 1250.25 Intake: Intake, Total IV Amount 1249.75 / 1249.75 1250.25 / 1250.25 Dextrose 5%-Lactated Ringers 1, 1000 / 1000 000 ml @ 500 mls/hr IV .Q2H [facility] Rx#:[id number] Lactated Ringers 1000ML 1,000 1000 / 1000 ml @ 999 mls/hr IV .Q1H1M [facility] Rx#:[id number] Oxytocin/Ringers Lactate 30 249.75 / 249.75 250.25 / 250.25 units In 500 ml @ 40 mls/hr IV .[id number] [facility] Rx#:[id number] Other: Weight 161 lb Laboratory Results - last 24 hr 02/17/25 16:10: Urine Color Yellow, Urine Appearance Sl cloudy, Urine pH 6.5, Ur Specific [place] 1.015, Urine Protein Negative, Urine Glucose (UA) Negative, Urine Ketones Negative, Urine Blood Negative, Urine Nitrate Negative, Urine Bilirubin Negative, Urine Urobilinogen 0.2, Ur Leukocyte Esterase Negative, Urine RBC 5-10, Urine WBC 5-10, Ur Squamous Epith Cells 5-10, Urine Bacteria 4+ 02/17/25 18:05: Membrane Rupture Positive A 02/17/25 18:31: WBC 15.9 H, RBC 4.37, Hgb 12.3, Hct 36.9 L, MCV 84.4, MCH 28.1, MCHC 33.3, RDW 12.8, Plt Count 268, MPV 10.6 H, Neut % (Auto) 74.6, Lymph % (Auto) 11.6, [place] % (Auto) 8.0, Eos % (Auto) 0.4, Baso % (Auto) 0.7, Neut # (Auto) 11.9 H, Lymph # (Auto) 1.8, [place] # (Auto) 1.3 H, Eos # (Auto) 0.1, Baso # (Auto) 0.1, Total Counted 100, Neutrophils % (Manual) 80 H, Lymphocytes % (Manual) 15, Monocytes % (Manual) 4, Eosinophils % (Manual) 1, Platelet Estimate Normal, Polychromasia 1+, Blood Type O Positive, Antibody Screen Negative 02/18/25 05:25: WBC 24.5 H* D, RBC 3.87 L, Hgb 11.2 L, Hct 32.8 L, MCV 84.8, MCH 28.9, MCHC 34.1, RDW 13.0, Plt Count 253, MPV 10.5 H, Neut % (Auto) 79.7, Lymph % (Auto) 7.3 L, [place] % (Auto) 10.1 H, Eos % (Auto) 0.1, Baso % (Auto) 0.4, Neut # (Auto) 19.6 H, Lymph # (Auto) 1.8, [place] # (Auto) 2.5 H, Eos # (Auto) 0.0, Baso # (Auto) 0.1, Total Counted 100, Neutrophils % (Manual) 74, Band Neutrophils % 3.0, Lymphocytes % (Manual) 12, Monocytes % (Manual) 11 H, Platelet Estimate Normal, RBC Morphology Normal I & O for Labs for Last 24 Hours: Intake & Output 02/15/25 02/16/25 02/17/25 02/18/25 23:59 23:59 23:59 23:59 Intake Total 1249.75 / 1249.75 1250.25 / 1250.25 Balance 1249.75 / 1249.75 1250.25 / 1250.25 Weight 161 lb Head: Present atraumatic and normocephalic ENT: Present mucous membranes moist Neck: Present normal inspection and full ROM Respiratory: Present CTA bilaterally and normal respiratory effort Cardiac: Present Reg Rate and Rhythm GI: Present soft; Absent distention or tenderness Comments:: Uterine fundus firm and below umbilicus Rectal (female): Present deferred (female): Present deferred Extremities: Present normal inspection and full ROM; Absent tenderness, edema or calf tenderness Neuro: Present alert, awake and moves all extremities Assessment and Plan *Assessment and plan (1) Status post vaginal delivery: Status: Acute Category: Surgical (2) SROM (spontaneous rupture of membranes): Status: Acute Category: Medical (3) Spontaneous onset of labor: Status: Acute Category: Medical (4) Meconium in amniotic fluid: Status: Acute Category: Medical Code(s): P96.83 - Meconium staining Plan Doing well Encouraged increased ambulation Plan d/c home tomorrow
[2025-02-18 14:49] LABS: RPR W/RFX Titers Nonreactive (Nonreactive)
[2025-02-18 20:12] VITALS: BP 119/58; PULSE 81; RESP 18; TEMP 36.7; O2SAT 99
[2025-02-19] MEDS: ACETAMINOPHEN 500MG TAB 1000 MG PO (05:45)
[2025-02-19] MEDS: IBUPROFEN 400 MG TABLET 800 MG PO (05:47)
--- NOTE | 2025-02-19 08:47 | EXP.DC.SUM ---
General Admission date:: 02/17/25 Discharge date: 02/19/25 HPI HPI HPI: PPD # 2 s/p Feeling well. Pain controlled. Breast feeding. Lochia is appropriate. Voiding without difficulty and passing flatus. Tolerating regular diet. Denies fever/chills, chest pain and shortness of breath. No headaches, vision changes, lightheadedness/dizziness. No lower extremity swelling. Ambulating well ad severo. Hospital Course Hospital Course Hospital Course: Mrs David Hannah is a 24 yo at 37w4d who presents to [facility] L&D with leakage of fluid and contractions that started at 1700. Cervical exam was 3-4/70/-1 with thick yellow meconium noted. She has had good care. GBS negative. She had a normal spontaneous vaginal delivery on 02/17/25 at 2253. She delivered a live female baby, Jackeline, weighing 7 lb 5 oz. APGARs 6 (1 min), 7 (5 min), 9 (10 min). EBL 50 mL. She did well . Pain controlled. Breast feeding. Light lochia. Voiding without difficulty and passing flatus. Tolerating regular diet. Denies fever/chills, chest pain and shortness of breath. No headaches, dizziness/lightheadedness or vision changes. Vital signs stable, afebrile. Heart regular rate and rhythm. Lungs clear to auscultation. Abdomen soft, nontender. No lower extremity swelling. Ambulating well ad severo. PPD # 1 WBC was 24.5. Preliminary urine culture demonstrated gram positive cocci. Concern for possible group A strep in the urine. She was prophylactically started on Bactrim DS BID for 7 days while awaiting ID and sensitivity. Repeat WBC on PPD # 2 decreased to 14.7. She was discharged to home on PPD # 2 with instructions to follow-up in the office in 2 weeks or sooner if needed. Will call David with urine culture results and make adjustments to medication if needed. Exam Data for Last 24 hours Vital signs and Labs for Last 24 Hours: Temp Pulse Resp BP Pulse Ox O2 Del Method 98.0 F 81 18 119/58 L 99 Room Air 02/18/25 20:12 02/18/25 20:12 02/18/25 20:12 02/18/25 20:12 02/18/25 20:12 02/18/25 20:12 Laboratory Results - last 24 hr 02/17/25 18:31: RPR w/Rflx to Titer Nonreactive I & O for Last 24 hours: Intake & Output 02/16/25 02/17/25 02/18/25 02/19/25 23:59 23:59 23:59 23:59 Intake Total 1249.75 / 1249.75 1250.25 / 1250.25 Balance 1249.75 / 1249.75 1250.25 / 1250.25 Weight 161 lb Results Data Completed and Pending Labs on day of discharge: Labs from last 24 hours 02/17/25 18:31 RPR w/Rflx to Titer Nonreactive DS: Diagnosis Discharge Diagnosis (1) Status post vaginal delivery: Status: Acute (2) SROM (spontaneous rupture of membranes): Status: Acute (3) Spontaneous onset of labor: Status: Acute (4) Meconium in amniotic fluid: Status: Acute Code(s): P96.83 - Meconium staining (5) UTI (urinary tract infection): Status: Acute Code(s): N39.0 - Urinary tract infection, site not specified Meds Home Medications and Allergies Home Medications ?Medication ?Instructions ?Recorded ?Confirmed ?Type vits no.126-ferrous fum 1 tab PO DAILY 01/24/23 02/18/25 History 28 mg iron-folic acid 800 mcg tablet (Classic ) ibuprofen 800 mg tablet 800 mg PO Q8H PRN pain #20 tabs 02/19/25 Rx sulfamethoxazole 800 1 tab PO BID 7 days #13 tabs 02/19/25 Rx mg-trimethoprim 160 mg tablet New Prescriptions to Start Prescriptions: ibuprofen Libertad Lee sulfamethoxazole-trimethoprim Libertad Lee Allergies Allergy/AdvReac Type Severity Reaction Status Date / Time No Known Allergies Allergy Verified 02/13/25 10:35 Discharge Plan Disposition Patient Disposition: Home, Self-Care Condition: Good Discharge Order Discharge Orders: Discharge Order (Routine); Ordered 02/19/25 Ordered By: Libertad Lee Follow up Plan Follow up with: Libertad Lee DO [Primary Care Provider, [employer]] - 2 weeks Prescriptions/Medication Reconciliation: New ibuprofen 800 mg tablet 800 mg PO Q8H PRN (Reason: pain) Qty: 20 0RF sulfamethoxazole-trimethoprim 800-160 mg Tablet 1 tab PO BID 7 Days Qty: 13 0RF Continued Classic 28 mg iron- 800 mcg tablet 1 tab PO DAILY Problem Reconciliation Problems Reviewed?: Yes Patient Discharge Instructions ACTIVITY: Limited activity DIET: continue same diet and regular diet Additional Instructions: Discharge: 1. Take 800 mg Ibuprofen every 8 hours as needed for pain. You can also take 500-1000 mg of Tylenol in between doses, every 6-8 hours. 2. Nothing in the vagina for 6 weeks - no intercourse, douching or tampons. No tub baths/hot tubs or swimming pools 3. Reasons to return to L&D or call On-Call doctor - fever (greater than 100.4) - heavy vaginal bleeding (soaking through 1 pad in less than 2 hours) - vaginal discharge (malodorous and/or purulent) - severe headaches not resolved by medication or rest and leg tenderness 4. depression/blues - Normal to feel anxious/overwhelmed for first 2 weeks - Talk to your doctor if: severe anxiety, trouble bonding with baby, withdrawing from other family members, thoughts of harming yourself or others Libertad Lee DO [facility] [phone] Print Language: Korean Providers Primary Care Provider: Libertad Lee Admit Provider: Libertad Lee Attending Provider: Libertad Lee
[2025-02-19 10:24] LABS: Hematocrit 34.2 % (37.0-47.0); Hemoglobin 11.1 g/dL (12.2-16.2); Immature Granulocytes % 4.4 %; Mean Corpuscular HGB Conc 32.5 g/dL (31.8-35.4); Mean Corpuscular Hemoglobin 28.1 pg (27.0-31.2); Mean Corpuscular Volume 86.6 fl (81-99); Nucleated Red Blood Cells % 0 %; Platelet Count 253 K/mm3 (142-424); Red Blood Count 3.95 M/mm3 (4.20-5.40); Red Cell Distribution Width-SD 41.3 fL; White Blood Count 14.7 K/mm3 (4.8-10.8)
[2025-02-19 10:53] LABS: Total Cells Counted 100
[2025-02-19 10:54] LABS: RBC Morphology Normal
[2025-02-19] MEDS: SULFA/TRIMETHOPRIM 1 TABLET 1 EACH PO (10:55)
== END 2025-02-19 15:31 | disposition home or self-care (01) | DRG 806 ==
LOC: OBOUT 18:39 → OB 18:39
PROVIDERS: Admitting Provider Obstetrics & Gynecology; PCP Obstetrics & Gynecology; Visit Provider Obstetrics & Gynecology
DX: O42.02 Full-term premature rupture of membranes, onset of labor within 24 hours of rupture (principal); N39.0 Urinary tract infection, site not specified; Z37.0 Single live birth; O86.20 Urinary tract infection following delivery, unspecified; Z3A.37 37 weeks gestation of pregnancy; O77.0 Labor and delivery complicated by meconium in amniotic fluid; B95.0 Streptococcus, group A, as the cause of diseases classified elsewhere; Z23 Encounter for immunization
CPT/HCPCS: 36415; 51702; 59025; 81001; 84112; 85007; 85025; 86592; 86850; 87086; 87088; 87186; 94761; J2003; J2795; J3010; J7120; J7121